=== PATIENT | female | born 1955 | race Caucasian/White ===

== ENCOUNTER 2024-11-04 14:47 | Outpatient (CLI) | payer MEDICARE, OTHER, SELFPAY ==
--- NOTE | ~2024-11-04 | CT_ITS ---
EXAMINATION: CT abdomen pelvis wo con DATE: 11/04/2024 15:08 INDICATION: Calculus of ureter. TECHNIQUE: Computed tomography (CT) of the abdomen and pelvis was performed without intravenous contr ast. Automated exposure control and iterative reconstruction technique were employed. The dose-length product was 372.35 mGy-cm. COMPARISON: CT abdomen pelvis 10/30/2009 FINDINGS: The visualized portions of the lung bases demonstrate mild atelectasis. There is mild scarr ing in paraspinal right lower lobe. No pleural effusion. The heart size is normal. No pericardial eff usion. There is a small sliding hiatal hernia. The liver, gallbladder, spleen, pancreas, and adrenal glands are normal. There is cortical thinning of the kidneys. There is a 5 mm stone right kidney. 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 There are no dilated loop s of bowel. The appendix is normal. There are no pathologically enlarged lymph nodes. There is no alyson e intraperitoneal fluid. There is a total left hip arthroplasty. There is mild lumbar spondylosis. IMPRESSION: 1. 5 mm nonobstructive right kidney stone. Reviewed, dictated and finalized at location A. N ASST
--- NOTE | ~2024-11-04 | XR_ITS ---
EXAMINATION: XR abdomen/kub 1V DATE: 11/04/2024 15:11 INDICATION: Calculus of ureter. TECHNIQUE: A supine view of the abdomen on 2 radiographs was obtained. COMPARISON: Abdomen radiographs 10/30/2009 FINDINGS: There are no dilated loops of bowel. There is a 5 mm stone in right kidney. There is a tota l left hip arthroplasty. IMPRESSION: 1. 5 mm stone in right kidney. Reviewed, dictated and finalized at location A. CE TENDER
--- OUTSIDE RECORDS SUMMARY | 2024-11-04 15:43 | XMS_ITS | Patient Health Record ---
Author Organization 1 OF Aruna fink [facility] Address [address] 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 Name Role Phone Earlene Washington Primary Care Provider Sridhar RosalesaStepanie Unavailable [phone] Allergies Allergen (clinical drug ingredient) Drug/Non Drug Allergy documented on EMR Reaction Allergy Type Onset Date Status amoxicillin / clavulanate Augmentin (uncoded) Unknown Allergy Active erythromycin Erythromycin (uncoded) Unknown Allergy Active hydrocodone Hydrocodone (uncoded) Unknown Allergy Active Substance with sulfonamide structure and antibacterial mechanism of action (substance) Sulfa (uncoded) Unknown Allergy Active Reason For Referral No Information Medications Medication SIG (Take, Route, Frequency, Duration) Notes Start Date End Date Status Diclofenac Sodium 1 % as directed Topica l Apply no more than 4 grams to affected area of foot Q6-8 hours PRN Pain for 30 days 11/19/2018 Not-T aking Vitamin D Active Lisinopril Active Rosuvastatin Calcium Active Omeprazole Active Social History Tobacco Use: Social History Observation Description Date Details (start date - stop date) Never Smoker NA - NA Tobacco Use/Smoking Question Answer Notes Are you a nonsmoker Plan Of Treatment No Information Insurance Providers Payer Name Payer Address Payer Phone Subscriber Number Group Number Insured Name Patient Relationship to Insured Coverage Start Date Coverage End Date [facility] [address] [place] [address] [id number] Luciana Anderson Self - patient is the insured Medical (General) History Medical History History ICD Code gerd/reflux, high cholesterol, high bloo d pressure Surgical History Surgery Date(Month/Year)
--- OUTSIDE RECORDS SUMMARY | 2024-11-04 15:43 | XMS_ITS | Clinical Summary ---
Author Organization [facility] at [facility] Center Address [address] [place] [address] Care Team Providers Care Assistant Corporation Counsel Name Role Phone Sadia Michaud MD Primary Care Provider [phone] Javi Kent MD Unavailable [phone] Sonya Huizar NP Unavailable [phone] Juan Luis Mora MD Unavailable [phone] Caitie Davies MD Unavailable [phone] Allergies Active Allergy Reactions Criticality Noted Date Comments Ciprofloxacin Headache Low 03/25/2019 Clindamycin Headache Low 03/03/2021 Erythromycin Rash Medium 03/25/2019 Hydrocodone Bitartrate Headache Low 03/25/2019 Sulfa (Sulfonamide Antibiotics) Headache Low 03/09 Vancomycin Headache Low 06/08/2021 Medications cholecalciferol (Vitamin D3) 2000 unit tabletIndications:Vitami n D deficiency Take 1 tablet (2,000 Units total) by mouth daily 90 tablet 1 05/15/20 20 Active omega-3 fatty acids (LOVAZA) 1 gram capsuleIndications:Mixed hyperlipidemia Take 2 capsules (2 g total) by mouth 2 (two) times a day 120 capsule 11 06/16/20 23 Active cetirizine (ZyrTEC) 10 mg tablet Take 1 tablet (10 mg total) by mouth daily 30 tablet 11 01/11/20 025 Active anastrozole (ARIMIDEX) 1 mg tablet TAKE 1 TABLET(1 MG) BY MOUTH DAILY 90 tablet 3 06/17/20 24 Active amLODIPine (NORVASC) 5 mg tabletIndications:Primar y hypertension Take 1 tablet (5 mg total) by mouth daily 90 tablet 3 06/17/20 24 025 Active lisinopriL (PRINIVIL,ZESTRIL) 20 mg tabletIndications:Primar y hypertension Take 1 tablet (20 mg total) by mouth daily 90 tablet 3 06/17/20 24 025 Active omeprazole (PriLOSEC) 40 mg capsuleIndications:[place] tt's esophagus without dysplasia Take 1 capsule (40 mg total) by mouth daily 90 capsule 3 06/17/20 24 025 Active rosuvastatin (CRESTOR) 5 mg tabletIndications:Pure hypercholesterolemia Take 1 tablet (5 mg total) by mouth daily 90 tablet 3 06/17/20 24 025 Active Active Problems Problem Noted Date Diagnosed Date FH: colon cancer 09/19/2024 Screening for colon cancer 07/25/2024 FHx: colon cancer 07/25/2024 Piriformis syndrome, right 06/17/2024 Assessment & Plan (06/17/2024 10:25 AM CDT): Recommend Accuobility ball and foam roller for home use Refer to PT Kidney stone 06/17/2024 Assessment & Plan (06/17/2024 10:26 AM CDT): Refer to urology Abnormal TSH 12/05/2023 Acute bronchitis due to other specified organism s 10/30/2023 Assessment & Plan (12/20/2023 12:06 PM CDT): New Order cefdinir, decadron, yamilex dee duoneb Order CT chest Refer to pulmonary Assessment & Plan (11/12/2023 7:18 PM PIPELINES LABORER): Persistent Order cefdinir, medrol, yamilex kaur AC Primary osteoarthritis of left hip 02/27/2023 Encounter for Medicare annual wellness exam 0 04/2022 Assessment & Plan (09/23/2022 3:15 PM PIPELINES LABORER): Patient here for annual Medicare wellness visit and for review of complete medical problem list. All the elements of the plan were completed as outlined by CMS. A copy of the prevention plan was given to the patient. I reviewed Medicare Wellness Questionnaire (other physicians involved in care, depression screen, advanced directives), cognitive/memory, and functional assessment. I reviewed and updated the complete problem list, medication list, family history, and immunization records with the patient. I provided preventive counseling and early detection interventions to the patient through health maintenance update and summary of today's office visit. Acute non-recurrent maxillary sinusitis 09/14/20 Assessment & Plan (11/12/2023 7:18 PM PIPELINES LABORER): Persistent Order cefdinir, medrol, astlein Onychomycosis of toenail 12/31/2021 Assessment & Plan (01/11/2022 7:02 AM CDT): New Order topical solution Uncontrolled hypertension 06/17/2021 Assessment & Plan (01/11/2022 7:01 AM CDT): Uncontrolled Since changing the prinzide to lisinopril because of elevated creatinine on last few labs, so that the HCTZ is removed, her BP has been going up again. Cont lisinopril Increase amlodipine to BID Goal: SBP<140, DBP<90 Assessment & Plan (11/12/2021 9:40 AM PIPELINES LABORER): Uncontrolled Since changing the prinzide to lisinopril because of elevated creatinine on last few labs, so that the HCTZ is removed, her BP has been going up again. Cont lisinopril Add amlodipine Goal: SBP<140, DBP<90 Assessment & Plan (06/28/2021 3:21 AM CDT): Uncontrolled Change lisinopril to zestoretic Goal: SBP<140, DBP<90 Oral thrush 06/17/2021 Assessment & Plan (06/28/2021 3:23 AM CDT): New Order nystatin Elevated liver enzymes 06/17/2021 Assessment & Plan (06/28/2021 3:23 AM CDT): New Recheck LFTs and hepatitis panel Abnormal EKG 06/17/2021 Assessment & Plan (06/28/2021 3:22 AM CDT): New Order EKG Cough 06/17/2021 Assessment & Plan (06/28/2021 3:24 AM CDT): New Secondary to URI Order cefdinir, albuterol Order CXR Malignant neoplasm of upper- outer quadrant of left breast in female, estrogen receptor positive 04/27/2021 Cancer Staging:Clinical stage from 04/16/2021: cT1c, cN0, cM0, ER+, OR+, HER2- - Signed by Caitie Davies MD on 05/05/2021 Pathologic stage from 05/27/2021:Stage IA(pT1c, pN0, cM0, G2, ER+, OR+, HER2-) - Signed by Caitie Davies MD on 07/05/2021 Left hip pain 12/15/2020 Assessment & Plan (03/10/2022 4:31 AM CDT): Worsening pain Order PT Assessment & Plan (12/21/2020 5:52 AM CDT): Worsening Refer to ortho Memory difficulties 12/15/2020 Assessment & Plan (12/21/2020 5:53 AM CDT): New Refer to memory center History of radiation therapy 10/09/2020 Overview (09/16/2021): Left breast Elevated alkaline phosphatase level 10/10/2019 Assessment & Plan (06/17/2024 10:25 AM CDT): Chronic and stable Possibly due to chemotherapy Refer to GI Assessment & Plan (05/15/2020 6:48 PM CDT): Resolved - normal on recent labs Assessment & Plan (10/10/2019 3:31 PM PIPELINES LABORER): Order liver ultrasound Monitor alkaline phosphatase 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 Continue current regimen with PPI Assessment & Plan (10/10/2019 3:30 PM PIPELINES LABORER): Stable Cont prilosec Assessment & Plan (03/25/2019 10:27 AM CDT): Cont prilosec Hyperlipidemia 06/28/2016 Assessment & Plan (06/17/2024 10:24 AM CDT): Rosuvastatin 5 mg refilled Continue [id number] fish oil Follow-up in 6 months Assessment & Plan (12/20/2023 12:07 PM CDT): Chronic Stable Cont crestor, lovaza Goal: TC<200, LDL<100, TG<150 Assessment & Plan (06/16/2023 4:46 AM CDT): Chronic TG increased Add fish oil Cont crestor Goal: TC<200, LDL<100, TG<150 Assessment & Plan (03/10/2022 4:28 AM CDT): Stable Cont crestor Goal:TC<200, LDL<100 Assessment & Plan (10/24/2021 5:46 PM PIPELINES LABORER): Stable Cont crestor Goal:TC<200, LDL<100 Assessment & Plan (07/15/2021 5:52 AM CDT): Stable Cont crestor Goal:TC<200, LDL<100 Assessment & Plan (06/28/2021 3:22 AM CDT): Stable Cont crestor Goal:TC<200, LDL<100 Assessment & Plan (12/21/2020 5:53 AM CDT): Stable Cont crestor Assessment & Plan (05/15/2020 6:48 PM CDT): Stable, no changes. Continue current regimen with Crestor Assessment & Plan (10/10/2019 3:30 PM PIPELINES LABORER): Lipid abnormalities are improving. cont crestor Lipids will be reassessed in 6 months. Assessment & Plan (03/25/2019 10:28 AM CDT): Lipid abnormalities are improving. cont crestor Lipids will be reassessed in 6 months. Hypertension 06/28/2016 Assessment & Plan (06/17/2024 10:24 AM CDT): Currently chronic and stable Continue current medication regimen as prescribed. Goal blood pressure is less than 140/90. Recommend DASH diet to reduce sodium/salt in diet. Recommend 150 min of moderate aerobic exercise weekly as tolerated. Visit www.heart.org for more information on diet and lifestyle to improve blood pressure for heart health. F/u in 6 months Assessment & Plan (12/20/2023 12:06 PM CDT): Chronic Stable Cont lisinopril Goal: SBP<140, DBP<90 Assessment & Plan (11/12/2023 7:21 PM PIPELINES LABORER): Chronic Stable Cont lisinopril Goal: SBP<140, DBP<90 Assessment & Plan (06/16/2023 4:47 AM CDT): Chronic Stable Cont lisinopril, norvasc Goal: SBP<140, DBP<90 Assessment & Plan (03/10/2022 4:33 AM CDT): stable Cont lisinopril, norvasc Goal: SBP<140, DBP<90 Assessment & Plan (10/24/2021 5:46 PM PIPELINES LABORER): Better Cont lisinopril/hctz Goal: SBP<140, DBP<90 Assessment & Plan (07/15/2021 5:52 AM CDT): Better Cont lisinopril/hctz Goal: SBP<140, DBP<90 Assessment & Plan (12/21/2020 5:52 AM CDT): Stable Cont lisionpril Assessment & Plan (05/15/2020 6:49 PM CDT): Elevated recently. Increased stress may be contributing. Advised to keep a daily log of BP and if remains elevated, will increase lisinopril to 30mg Assessment & Plan (10/10/2019 3:30 PM PIPELINES LABORER): Hypertension is stable. Continue current medications. Blood pressure will be reassessed at the next regular appointment Cont lisinopril. Assessment & Plan (03/25/2019 10:28 AM CDT): Hypertension is stable. Continue current medications. Blood pressure will be reassessed at the next regular appointment Cont lisinopril. Resolved Problems Problem Noted Date Diagnosed Date Resolved Date Cough 03/25/2019 05/15/2020 Assessment & Plan (03/25/2019 10:32 AM CDT): Treat for sinus infection Vitamin D deficiency 06/28/2016 024 Assessment & Plan (06/16/2023 4:46 AM CDT): Chronic Stable Cont vitamin d supplement Assessment & Plan (03/10/2022 4:29 AM CDT): Stable Cont vit d supplement Assessment & Plan (10/24/2021 5:47 PM PIPELINES LABORER): Stable Cont vit d supplement Assessment & Plan (06/28/2021 3:22 AM CDT): Stable Cont vit d supplement Assessment & Plan (05/15/2020 6:49 PM CDT): Stable, no changes. Continue current regimen with supplement Assessment & Plan (10/10/2019 3:30 PM PIPELINES LABORER): Stable Cont OTC vitamin d supplement Assessment & Plan (03/25/2019 10:28 AM CDT): Cont OTC vitamin d supplement Encounters Date Type Department Care Team Description 10/23/2024 3:00 PM PIPELINES LABORER Office Visit [facility] Medical Office Building 2 Radiation Oncology [address] [place] [id number] [address], [place] Malignant neoplasm of upper-outer quadrant of left breast in female, estrogen receptor positive (HCC) (Primary Dx); History of radiation therapy 09/19/2024 Orders Only [facility]ology at [address] [phone] Claude Quiroz MD Screening for colon cancer (Primary Dx); FH: colon cancer; 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; Elevated alkaline phosphatase level 09/18/2024 Telephone [facility] Gastroenterology at [address] [phone] Eljiah Ngo MD from Last 3 Months Immunizations Name Administration Dates Next Due Influenza, Trivalent, Preser vative Free, Intramuscular 07/27/2023,07/26/2022,07/15/2021,07/16,07/24/2019 Influenza, Unspecified 07/26/2022,2020,07/19/2021,07/15,07/28/2020,07/28/2020,07/16/2020 ,07/24/2019 Moderna SARS-CoV-2 Monovalen t Vaccination (12+ YRS) 10/26/2021,12/24/2020,11/26/2020 Surgical History Surgery Date Site/Laterality Comments DILATION AND CURETTAGE OF UTERUS 10/09/1979 - 10/08/1980 TONSILLECTOMY AND ADENOIDECTOMY 10/09/1960 - 10/08/1961 KIDNEY STONE SURGERY 10/09/2008 - 10/08/2009 FL FLUORO GUIDED INJECTION H IP LEFT 03/03/2021 Left LITHOTRIPSY 10/09/2008 - 10/08/2009 COLONOSCOPY MOHS SURGERY face BREAST LUMPECTOMY 05/27/2021 Left Invasive ductal carcinoma BREAST BIOPSY 04/16/2021 Left Invasive Ductal Carcinoma & DCIS TOTAL HIP ARTHROPLASTY 05/12/2023 Left UPPER GASTROINTESTINAL ENDOSCOPY Medical History Medical History Date Comments Hypertension Hyperlipidemia Quezada's esophagus Vitamin D deficiency Rosacea Arthritis GERD (gastroesophageal reflux disease) Cough 03/25/2019 Nephrolithiasis hx of kidney sto yaneli Quezada esophagus Motion sickness PONV (postoperative nausea and vomiting) Pneumonia Allergic rhinitis Urinary tract infection Chronic pain disorder left hip a rthritis Obesity Miscarriage 1979 Breast cancer (HCC) 04/2021 Left Breast (invasive ductal carcinoma) History of radiation therapy 2020 Lef t breast Family History Medical History Relation Name Comments No Known Problems Daughter 1 No Known Problems Daughter 2 Dementia Father Heart disease Father Colon cancer Maternal Grandfather COPD Mother Dementia Mother Prostate cancer Mother's Brother Hypertension Sister 1 Hypertension Sister 2 No Known Problems Son 1 No Known Problems Son 2 Breast cancer Neg Hx Relation Name Status Comments Daughter 1 Alive Daughter 2 Alive Father Maternal Grandfather Mother Alive Mother's Brother Sister 1 Alive Sister 2 Alive Son 1 Alive Son 2 Alive Social History Tobacco Use Types Packs/Day Years Used Date Smoking Tobacco: Never Smokeless Tobacco: Never Alcohol Use Standard Drinks/Week Comments Never 0 (1 standard drink = 0.6 oz pur e alcohol) AUDIT-C Answer Date Recorded Q1: How often do you have a drink containing alcohol? Never 10/15/2024 Q2: How many drinks containi ng alcohol do you have on a typical day when you are drinking? Patient does not drink Q3: How often do you have si x or more drinks on one occasion? Never 10/15/2024 PHQ-2 Answer Date Recorded PHQ-2 Total Score (If total score is 3 or more points, staff should administer the PHQ-9) 0 10/30/2023 Comments No Sex and Gender Information Value Date Recorded Sex Assigned at Not on file Legal Sex Female 12:16 AM PIPELINES LABORER Gender Identity Female 12/12/2020 10:44 AM PIPELINES LABORER Sexual Orientation Not on file Obstetrics History Para Term AB IAB SAB Ectopic Multiple Livin g Live Births 5 4 4 Date Outcome GA Total Labor Labor/2nd/3rd Weight Sex Type Anes PTL Nette A1 A5 Name Clin Term Term Term Term Last Filed Vital Signs Vital Sign Reading Time Taken Comments Blood Pressure 137/87 10/23/2024 3:06 PM PIPELINES LABORER Pulse 77 10/23/2024 3:06 PM PIPELINES LABORER Temperature 36.8 ??C (98.3 ??F) 07/09/2024 1:13 PM C DT Respiratory Rate 16 07/09/2024 1:13 PM CDT Oxygen Saturation 100% 10/23/2024 3:06 PM PIPELINES LABORER Inhaled Oxygen Concentration - - Weight 90.3 kg (199 lb) 10/23/2024 3:06 PM PIPELINES LABORER Height 165.1 cm (5' 5 ) 06/17/2024 9:29 AM CDT Body Mass Index 33.12 06/17/2024 9:29 AM CDT Plan of Treatment Health Maintenance Due Date Last Done Comments Colon Cancer Screening-Colonoscopy 1957 Pneumococcal vaccine 65+ (1 of 2 - PCV) 1963 DTaP/Tdap/Td Vaccine (1 - Tdap) 1968 Hepatitis B Screening 1975 Zoster Vaccine (1 of 2) 1976 Well Visit 65+ 09/14/2023 09/14/2022 Covid-19 Vaccine (4 2023-2 5 season) 2024 10/26/2021, 12/24/2020, 11/26/2020 Influenza Vaccine (#1) 2024 , 07/26/2022, 07/26/2022, Additional history exists Depression Screening 10/30/2024 10/30/2023, 09/14/2022, 09/14/2022, Additional history exists Fall Risk Assessment 10/30/2024 10/30/2023, 09/14/2022, 05/20/2021 Breast Cancer Screening-Mammogram 04/12/2025 04/12/2024, 04/04/2023, 03/21/2022, Additional history exists Osteoporosis Screening-Bone Density Scan 07/21/2025 07/21/2023, 08/06/2021, 08/06/2021, Additional history exists Hepatitis C Screening Completed 07/05/2021 Medical Devices Explanted Type Area Drivers' Cash Clerk Device Identifier Shelf Expiration Date Model / Serial / Lot [employer] [id number] Addison 20ga 7.5cm 2 Part Stabilizer Repositionable Depth Albino - [id number] Explanted:Qty: 1 on 05/27/2021 at [facility] [employer] [id number] / / [employer] [id number] Addison 20ga 5cm Reposition J Curve Wire Centimeter Albino Stabilizer - [id number] Explanted:Qty: 1 on 05/27/2021 at [facility] [email or web address] 10/16/2025 [id number] / / Procedures Procedure Name Priority Date/Time Associated Diagnosis Comments DIAGNOSTIC MAMMOGRAM BILATERAL W SHASHANK Schedule Routine, Read Routine (OP Routine) 04/12/2024 2:03 PM CDT Screening mammogram for breast cancer Mammographic microcalcification found on diagnostic imaging of breast DEXA AXIAL SKELETON BONE DENSITY 1 OR MORE SITES Schedule Routine, Read Routine (OP Routine) 07/21/2023 10:11 AM CDT Post-menopausal osteoporosis HEPATITIS PANEL, ACUTE Routine 07/05/2021 12:34 PM CDT from Last 3 Months or Most Recently Relevant to Health Maintenance Results * Diagnostic Mammogram Bilateral W Shashank (04/12/2024 2:03 PM CDT) Anatomical Region Laterality Modality Breast Bilateral Mammography 04/12/2024 2:13 PM CDT Narrative 04/12/2024 2:18 PM CDT EXAM DESCRIPTION: DIAGNOSTIC MAMMOGRAM BILATERAL W SHASHANK REASON FOR STUDY: 69-year-old female with history of left breast invasive ductal carcinoma (diagnosed in April 2021) status post breast conserving therapy presents for post-treatment annual diagnostic mammogram. TECHNIQUE: ??CC and MLO views of the bilateral breasts were obtained with digital technique using breast tomosynthesis with C view. ?? COMPARISON: 04/04/2023, 03/21/2022, 05/27/2021, 04/16/2021, 04/09/2021, 03/17/2021, 07/10/2019 FINDINGS: DENSITY: The breasts are almost entirely fatty. MAMMOGRAM FINDINGS: Expected postoperative/post-treatment changes of breast conserving therapy in the upper outer left breast, posterior depth, have not suspiciously changed. ??There is an unchanged benign intramammary lymph node in the upper outer right breast, posterior depth. ??There are benign calcifications in the left breast, many of which are in keeping with either fat necrosis or skin calcifications. ??There is no new suspicious finding in either breast on mammogram. IMPRESSION: 1. ?? Stable postoperative/post-treatment changes of breast conserving therapy in the left breast. 2. ?? No new suspicious mammographic finding is identified in either breast. Continued clinical follow-up and monthly self-breast examination are recommended. ??Per [facility] guidelines, the patient may return to screening mammography to be performed in 1 year. BIRADS: 2 ??Benign findings. THIS IS AN ELECTRONICALLY VERIFIED FINAL REPORT 04/12/2024 2:18 PM - Electronically signed by ??Melchor Villalpando M.D., MD: D: ??04/12/2024 2:18 PM T: ??04/12/2024 2:18 PM Report ID: [id number] Reading Location: ??MAMME Sonya Coley Bhupendra RESPIRATORY DIRECTOR IMG MAMMO PROCEDURES Final Result * Dexa Axial Skeleton Bone Density 1 or 2 Site (07/21/2023 10:11 AM CDT) Anatomical Region Laterality Modality Body N/A Mammography 07/22/2023 2:41 PM CDT Narrative 07/22/2023 2:42 PM CDT EXAM DESCRIPTION: DEXA AXIAL SKELETON BONE DENSITY 1 OR MORE SITES REASON FOR STUDY: 68 y/o ?? year old ??F ??with given history of: ??Postmenopausal status. ??History of prior left hip replacement in May 2023. ??Patient takes vitamin-D. ? Drivers' Cash Clerk/Model: SmartMove A (S/N [id number]) CLINICAL INFORMATION: Current height: ??65 ??inches ? Maximum height: ??65 ??inches ? Weight: ??209.6 ??pounds Risk factors: ??Prior fracture COMPARISON: 08/06/2021 FINDINGS: AP LUMBAR SPINE L1-L4: Total BMD is 0.896 g/cm2 T-score is -1.4 This is a 3.8% decrease in comparison to prior exam which is statistically significant. RIGHT HIP: Total BMD is 0.867 g/cm2 T-score is -0.6 No prior for comparison Femoral neck BMD is 0.651 g/cm2 T-score is -1.8 ?? FRAX: 10 year risk for a major osteoporotic fracture is 15 %, 10 year risk for a hip fracture is 1.9 % IMPRESSION: Low bone mass REFERENCE: Bone mineral density: ? Normal (T-score above or = -1.0) ? Low bone mass ??(T-score between -1.0 and -2.5) replaces the previously used term osteopenia ? Osteoporosis (T-score = or below -2.5) Medical evaluation for secondary causes of low bone mineral density may be appropriate. FRAX is a World Health Organization validated fracture risk assessment tool that calculates a person's 10 year probability of a major osteoporosis related fracture and hip fracture. ??According to the National Osteoporosis Foundation guidelines, postmenopausal women and men age 50 or older with low bone mass and a 10 year probability of a major osteoporosis related fracture = or greater than 20% or a 10 year probability of a hip fracture = or greater than 3% should be considered for treatment. For further information, including treatment recommendations, please refer to the 2019 ISCD Official Positions (http://www.iscd.org) and the NOF's Clinician's Guide to Prevention and Treatment of Osteoporosis (http://www.nof.org/professionals/clinical-guidelines) THIS IS AN ELECTRONICALLY VERIFIED FINAL REPORT 07/22/2023 2:42 PM - Electronically signed by ??Crystal Raymond M.D. TW: D: ??07/22/2023 2:42 PM T: ??07/22/2023 2:42 PM Report ID: [id number] Reading Location: ??[id number] Procedure Note Crystal Raymond MD - 07/22/2023 EXAM DESCRIPTION: DEXA AXIAL SKELETON BONE DENSITY 1 OR MORE SITES REASON FOR STUDY: 68 y/o year old F with given history of:Postmenopausal status. History of prior left hip replacement in May 2023. Patienttakes vitamin-D. Drivers' Cash Clerk/Model: [employer] A (S/N [id number]) CLINICAL INFORMATION: Current height: 65 inches Maximum height: 65 inches Weight: 209.6 pounds Risk factors: Prior fracture COMPARISON: 08/06/2021 FINDINGS: AP LUMBAR SPINE L1-L4: Total BMD is 0.896 g/cm2 T-score is -1.4 This is a 3.8% decrease in comparison to prior exam which is statistically significant. RIGHT HIP: Total BMD is 0.867 g/cm2 T-score is -0.6 No prior for comparison Femoral neck BMD is 0.651 g/cm2 T-score is -1.8 FRAX: 10 year risk for a major osteoporotic fracture is 15 %, 10 year risk for ahip fracture is 1.9 % IMPRESSION: Low bone mass REFERENCE: Bone mineral density: Normal (T-score above or = -1.0) Low bone mass (T-score between -1.0 and -2.5) replaces thepreviously used term osteopenia Osteoporosis (T-score = or below -2.5) Medical evaluation for secondary causes of low bone mineral density may be appropriate. FRAX is a World Health Organization validated fracture risk assessmenttool that calculates a person's 10 year probability of a major osteoporosisrelated fracture and hip fracture. According to the National OsteoporosisFoundation guidelines, postmenopausal women and men age 50 or older with low bonemass and a 10 year probability of a major osteoporosis related fracture = or greater than 20% or a 10 year probability of a hip fracture = or greaterthan 3% should be considered for treatment. For further information, including treatment recommendations, please referto the 2019 ISCD Official Positions (http://www.iscd.org) and the NOF's Clinician's Guide to Prevention and Treatment of Osteoporosis (http://www.nof.org/professionals/clinical-guidelines) THIS IS AN ELECTRONICALLY VERIFIED FINAL REPORT 07/22/2023 2:42 PM - Electronically signed by Crystal Raymond M.D. TW: TW Report ID: [id number] Reading Location: [place] [address] Sonya Huizar NP IM DXA PROCEDURES F inal Result * Hepatitis panel, acute (07/05/2021 12:34 PM CDT) Hep A IgM NON-REACTI VE NON-REACT EVA [facility] Comment: For additional information, please refer to http://education.GnamGnam/faq/TVN192 (This link is being provided for informational/ educational purposes only.) HepBsAg NON-REACTI VE NON-REACT EVA [facility] Hep B core IgM NON-REACTI VE NON-REACT EVA [facility] Hep C Ab NON-REACTI VE NON-REACT EVA [facility] SIGNAL TO CUT-OFF 0.01 <1.00 [facility] Comment: HCV antibody was non-reactive. There is no laboratory evidence of HCV infection. In most cases, no further action is required. However, if recent HCV exposure is suspected, a test for HCV RNA (test code 30280) is suggested. For additional information please refer to http://education.Flashstarts.GroundWork/faq/BTJ22s6 (This link is being provided for informational/ educational purposes only.) 07/05/2021 12:3 4 PM CDT 07/05/2021 12:35 PM CDT Sadia Michaud MD LAB MICROBIOLOGY - GENERA L ORDERABLES Final Result [facility] [address] [facility] [place] [address] from Last 3 Months or Most Recently Relevant to Health Maintenance Insurance [facility] MEDICARE MEDICARE [facility] Care Teams Assistant Corporation Counsel Relationship Specialty Start Date End Date Sadai Michaud MD PCP - General 11/26/18 Javi Kent MD [address] [place] [address] Surgeon Surgery 05/05/21 Sonya Huizar NP [address] [place] [address] Nurse Practitioner Medical Oncology 01/04/23 Juan Luis Mora MD [address] [place] [address] Surgeon General Surgery 10/05/23 Caitie Davies MD [address] [place] [address] Radiation Oncologist Radiation Oncology 06/04/24
--- OUTSIDE RECORDS SUMMARY | 2024-11-04 15:43 | XMS_ITS | Referral Summary ---
Author Organization [facility] Address [address] [place] [address] Care Team Providers Care Purchase Request Editor Name Role Phone Sadia Michaud MD Primary Care Provider [phone] Javi Kent MD Unavailable [phone] Sonya Huizar NP Unavailable + [phone] Juan Luis Mora MD Unavailable [phone] Caitie Davies MD Unavailable [phone] Encounters Date Type Department Care Team Description 10/23/2024 3:00 PM RAILWAY STATION MANAGER Office Visit [facility] 2 Radiation Oncology [address] [place] [id number] Marietta Dunne, ROSA M Malignant neoplasm of upper-outer quadrant of left breast in female, estrogen receptor positive (HCC) (Primary Dx); History of radiation therapy 09/19/2024 Orders Only [facility] Gastroenterology at [address] [place] [phone] Claude Quiroz MD Screening for colon cancer (Primary Dx); FH: colon cancer; 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; Elevated alkaline phosphatase level 09/18/2024 Telephone [facility] Gastroenterology at [address] [place] [address] Elijah Ngo MD from Last 3 Months Allergies Active Allergy Reactions Criticality Noted Date [...] by mouth daily 30 tablet 11 01/11/20 24 025 Active anastrozole (ARIMIDEX) 1 mg tablet [...] 24 025 Active omeprazole (PriLOSEC) 40 mg capsuleIndications:Lyles tt's esophagus without dysplasia Take 1 capsule [...] 12:06 PM CDT): New Order cefdinir, decadron, trelegy, guaituss, duoneb Order CT chest Refer to pulmonary Assessment & Plan (11/12/2023 7:18 PM RAILWAY STATION MANAGER): Persistent Order cefdinir, medrol, breztri, guaituss AC Primary osteoarthritis of left hip 02/27/2023 Encounter for Medicare annual wellness exam 04/2022 Assessment & Plan (09/23/2022 3:15 PM RAILWAY STATION MANAGER): Patient here for annual Medicare wellness visit [...] 09/14/20 Assessment & Plan (11/12/2023 7:18 PM RAILWAY STATION MANAGER): Persistent Order cefdinir, medrol, astlein Onychomycosis of [...] DBP<90 Assessment & Plan (11/12/2021 9:40 AM RAILWAY STATION MANAGER): Uncontrolled Since changing the prinzide to lisinopril [...] stage from 04/16/2021: cT1c, cN0, cM0, ER+, IA+, HER2- - Signed by Caitie Davies MD on 05/05/2021 Pathologic stage from 05/27/2021:Stage IA(pT1c, pN0, cM0, G2, ER+, IA+, HER2-) - Signed by Caitie Davies MD on 07/05/2021 Left hip pain 12/15/2020 Assessment & Plan (03/10/2022 4:31 AM CDT): Worsening pain Order PT Assessment & Plan (12/21/2020 5:52 AM CDT): Worsening Refer to ortho Memory difficulties 12/15/2020 Assessment & Plan (12/21/2020 5:53 AM CDT): New Refer to [facility] History of radiation therapy 10/09/2020 Overview (09/16/2021): Left breast Elevated alkaline phosphatase level 10/10/2019 Assessment & Plan (06/17/2024 10:25 AM CDT): Chronic and stable Possibly due to chemotherapy Refer to GI Assessment & Plan (05/15/2020 6:48 PM CDT): Resolved - normal on recent labs Assessment & Plan (10/10/2019 3:31 PM RAILWAY STATION MANAGER): Order liver ultrasound Monitor alkaline phosphatase 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 Assessment & Plan (06/17/2024 10:20 AM CDT): Refer to GI Omeprazole refilled Follow-up in 6 months Assessment & Plan (11/12/2023 7:20 PM RAILWAY STATION MANAGER): Chronic Stable Cont omeprazole Assessment & Plan [...] PPI Assessment & Plan (10/10/2019 3:30 PM RAILWAY STATION MANAGER): Stable Cont prilosec Assessment & Plan (03/25/2019 10:27 AM CDT): Cont prilosec Hyperlipidemia 06/28/2016 Assessment & Plan (06/17/2024 10:24 AM CDT): Rosuvastatin 5 mg refilled Continue kmxe-dlf-tlublup fish oil Follow-up in 6 months Assessment & Plan (12/20/2023 12:07 PM CDT): Chronic Stable Cont crestor, lovaza Goal: TC<200, LDL<100, TG<150 Assessment & Plan (06/16/2023 4:46 AM CDT): Chronic TG increased Add fish oil Cont crestor Goal: TC<200, LDL<100, TG<150 Assessment & Plan (03/10/2022 4:28 AM CDT): Stable Cont crestor Goal:TC<200, LDL<100 Assessment & Plan (10/24/2021 5:46 PM RAILWAY STATION MANAGER): Stable Cont crestor Goal:TC<200, LDL<100 Assessment & Plan (07/15/2021 5:52 AM CDT): Stable Cont crestor Goal:TC<200, LDL<100 Assessment & Plan (06/28/2021 3:22 AM CDT): Stable Cont crestor Goal:TC<200, LDL<100 Assessment & Plan (12/21/2020 5:53 AM CDT): Stable Cont crestor Assessment & Plan (05/15/2020 6:48 PM CDT): Stable, no changes. Continue current regimen with Crestor Assessment & Plan (10/10/2019 3:30 PM RAILWAY STATION MANAGER): Lipid abnormalities are improving. cont crestor Lipids [...] DBP<90 Assessment & Plan (11/12/2023 7:21 PM RAILWAY STATION MANAGER): Chronic Stable Cont lisinopril Goal: SBP<140, DBP<90 Assessment & Plan (06/16/2023 4:47 AM CDT): Chronic Stable Cont lisinopril, norvasc Goal: SBP<140, DBP<90 Assessment & Plan (03/10/2022 4:33 AM CDT): stable Cont lisinopril, norvasc Goal: SBP<140, DBP<90 Assessment & Plan (10/24/2021 5:46 PM RAILWAY STATION MANAGER): Better Cont lisinopril/hctz Goal: SBP<140, DBP<90 Assessment [...] 30mg Assessment & Plan (10/10/2019 3:30 PM RAILWAY STATION MANAGER): Hypertension is stable. Continue current medications. Blood [...] supplement Assessment & Plan (10/24/2021 5:47 PM RAILWAY STATION MANAGER): Stable Cont vit d supplement Assessment & Plan (06/28/2021 3:22 AM CDT): Stable Cont vit d supplement Assessment & Plan (05/15/2020 6:49 PM CDT): Stable, no changes. Continue current regimen with supplement Assessment & Plan (10/10/2019 3:30 PM RAILWAY STATION MANAGER): Stable Cont OTC vitamin d supplement Assessment & Plan (03/25/2019 10:28 AM CDT): Cont OTC vitamin d supplement Immunizations Name Administration Dates Next Due Influenza, Trivalent, Preser vative Free, Intramuscular 07/27/2023,07/26/2022,07/15/2021,07/16,07/24/2019 Influenza, Unspecified 07/26/2022,2020,07/19/2021,07/15,07/28/2020,07/28/2020,07/16/2020 ,07/24/2019 Moderna SARS-CoV-2 Monovalen t Vaccination (12+ YRS) 10/26/2021,12/24/2020,11/26/2020 Social History Tobacco Use Types Packs/Day Years [...] on file Legal Sex Female 12:16 AM RAILWAY STATION MANAGER Gender Identity Female 12/12/2020 10:44 AM RAILWAY STATION MANAGER Sexual Orientation Not on file Last Filed Vital Signs Vital Sign Reading Time Taken Comments Blood Pressure 137/87 10/23/2024 3:06 PM RAILWAY STATION MANAGER Pulse 77 10/23/2024 3:06 PM RAILWAY STATION MANAGER Temperature 36.8 ??C (98.3 ??F) 07/09/2024 1:13 PM CD T Respiratory Rate 16 07/09/2024 1:13 PM CDT Oxygen Saturation 100% 10/23/2024 3:06 PM RAILWAY STATION MANAGER Inhaled Oxygen Concentration - - Weight 90.3 kg (199 lb) 10/23/2024 3:06 PM RAILWAY STATION MANAGER Height 165.1 cm (5' 5 ) 06/17/2024 9:29 AM CDT Body Mass Index 33.12 06/17/2024 9:29 AM CDT Plan of Treatment Not on file Medical Devices Explanted Type Area Collision Worker Device Identifier Shelf Expiration Date Model / Serial / Lot [employer] [id number] [place] 20ga 7.5cm 2 Part Stabilizer Repositionable Depth Albino - [id number] Explanted:Qty: 1 on 05/27/2021 at [facility] [employer] [id number] / / [employer] [id number] [place] 20ga 5cm Reposition J Curve Wire Centimeter Albino Stabilizer - [id number] Explanted:Qty: 1 on 05/27/2021 at [facility] [employer] 10/16/2025 [id number] / / Procedures Procedure Name Priority Date/Time [...] and monthly self-breast examination are recommended. ??Per [facility] guidelines, the patient may return to screening mammography to be performed in 1 year. BIRADS: 2 ??Benign findings. THIS IS AN ELECTRONICALLY VERIFIED FINAL REPORT 04/12/2024 2:18 PM - Electronically signed by ??Melchor Villalpando M.D., MD: D: ??04/12/2024 2:18 PM T: ??04/12/2024 2:18 PM Report ID: [id number] Reading Location: ??MAMMMHE Sonya Huizar NP IMG MAMMO PROCEDURES Final Result * Dexa [...] in May 2023. ??Patient takes vitamin-D. ? Collision Worker/Model: [employer] A (S/N [id number]) CLINICAL INFORMATION: Current height: ??65 ??inches ? [...] Electronically signed by ??Crystal Raymond M.D. TW: DAVON D: ??07/22/2023 2:42 PM T: ??07/22/2023 2:42 PM Report ID: [id number] Reading Location: ??[id number] Procedure Note Crystal Raymond MD - 07/22/2023 EXAM DESCRIPTION: DEXA AXIAL SKELETON BONE DENSITY 1 OR MORE SITES REASON FOR STUDY: 68 y/o year old F with given history of:Postmenopausal status. History of prior left hip replacement in May 2023. Patienttakes vitamin-D. Collision Worker/Model: [employer] A (S/N [id number]) CLINICAL INFORMATION: Current height: 65 inches Maximum [...] Crystal Raymond M.D. TW: TW Report ID: [id number] Reading Location: [place] [address] [place] Sonya Huizar NET ARCHITECT IMG DXA PROCEDURES F inal Result * Hepatitis panel, acute (07/05/2021 12:34 PM CDT) Hep A IgM NON-REACTI VE NON-REACT EVA [facility] Comment: For additional information, please refer to http://[employer]/faq/QVE643 (This link is being provided for informational/ [...] a test for HCV RNA (test code 94159) is suggested. For additional information please refer to http://[employer]/faq/VAM68z4 (This link is being provided for informational/ educational purposes only.) 07/05/2021 12:3 4 PM CDT 07/05/2021 12:35 PM CDT us Sadia Michaud MD LAB MICROBIOLOGY - GENERA L ORDERABLES Final Result [facility] [address] [place] [address] from Last 3 Months or Most Recently Relevant to Health Maintenance Insurance [facility] MEDICARE MEDICARE [facility] SARAH Fajardo [id number] Care Teams Purchase Request Editor Relationship Specialty Start Date End Date Sadia Michaud MD PCP - General 11/26/18 Javi Kent MD [address] [place] [address] [id number] Surgeon Surgery 05/05/21 Sonya Huizar NP [address] [place] [address] [id number] Nurse Practitioner Medical Oncology 01/04/23 Juan Luis Mora MD [address] [place] [address] [phone] Surgeon General Surgery 10/05/23 Caitie Davies MD [address] [place] [id number] Radiation Oncologist Radiation Oncology 06/04/24
--- OUTSIDE RECORDS SUMMARY | 2024-11-04 15:43 | XMS_ITS ---
Author Organization [facility] Address [address] [place] [address] Care Team Providers Care Highwall Drill Operator Name Role Phone Sadia Michaud MD Primary Care Provider + [phone] Javi Kent MD Unavailable [phone] Sonya Huizar NP Unavailable + [phone] Juan Luis Mora MD Unavailable [phone] Caitie Davies MD Unavailable [phone] Active Problems Problem Noted Date Diagnosed Date [...] pulmonary Assessment & Plan (11/12/2023 7:18 PM CRIPPLE CUTTER): Persistent Order cefdinir, medrolnatasha guaituss AC Primary osteoarthritis of left hip 02/27/2023 Encounter for Medicare annual wellness exam 04/2022 Assessment & Plan (09/23/2022 3:15 PM CRIPPLE CUTTER): Patient here for annual Medicare wellness visit [...] 09/14/20 Assessment & Plan (11/12/2023 7:18 PM CRIPPLE CUTTER): Persistent Order cefdinir, medrolnoelle Onychomycosis of toenail 12/31/2021 Assessment & Plan [...] DBP<90 Assessment & Plan (11/12/2021 9:40 AM CRIPPLE CUTTER): Uncontrolled Since changing the prinzide to lisinopril [...] stage from 04/16/2021: cT1c, cN0, cM0, ER+, CO+, HER2- - Signed by Caitie Davies MD on 05/05/2021 Pathologic stage from 05/27/2021:Stage IA(pT1c, pN0, cM0, G2, ER+, CO+, HER2-) - Signed by Caitie Davies MD on 07/05/2021 Left hip pain 12/15/2020 Assessment & Plan (03/10/2022 4:31 AM CDT): Worsening pain Order PT Assessment & Plan (12/21/2020 5:52 AM CDT): Worsening Refer to ortho Memory difficulties 12/15/2020 Assessment & Plan (12/21/2020 5:53 AM CDT): New Refer to [facility] History of radiation therapy 10/09/2020 Overview (09/16/2021): Left breast Elevated alkaline phosphatase level 10/10/2019 Assessment & Plan (06/17/2024 10:25 AM CDT): Chronic and stable Possibly due to chemotherapy Refer to GI Assessment & Plan (05/15/2020 6:48 PM CDT): Resolved - normal on recent labs Assessment & Plan (10/10/2019 3:31 PM CRIPPLE CUTTER): Order liver ultrasound Monitor alkaline phosphatase 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 Assessment & Plan (06/17/2024 10:20 AM CDT): Refer to GI Omeprazole refilled Follow-up in 6 months Assessment & Plan (11/12/2023 7:20 PM CRIPPLE CUTTER): Chronic Stable Cont omeprazole Assessment & Plan [...] PPI Assessment & Plan (10/10/2019 3:30 PM CRIPPLE CUTTER): Stable Cont prilosec Assessment & Plan (03/25/2019 10:27 AM CDT): Cont prilosec Hyperlipidemia 06/28/2016 Assessment & Plan (06/17/2024 10:24 AM CDT): Rosuvastatin 5 mg refilled Continue dlcn-lkv-stmuuup fish oil Follow-up in 6 months Assessment & Plan (12/20/2023 12:07 PM CDT): Chronic Stable Cont crestor, lovaza Goal: TC<200, LDL<100, TG<150 Assessment & Plan (06/16/2023 4:46 AM CDT): Chronic TG increased Add fish oil Cont crestor Goal: TC<200, LDL<100, TG<150 Assessment & Plan (03/10/2022 4:28 AM CDT): Stable Cont crestor Goal:TC<200, LDL<100 Assessment & Plan (10/24/2021 5:46 PM CRIPPLE CUTTER): Stable Cont crestor Goal:TC<200, LDL<100 Assessment & Plan (07/15/2021 5:52 AM CDT): Stable Cont crestor Goal:TC<200, LDL<100 Assessment & Plan (06/28/2021 3:22 AM CDT): Stable Cont crestor Goal:TC<200, LDL<100 Assessment & Plan (12/21/2020 5:53 AM CDT): Stable Cont crestor Assessment & Plan (05/15/2020 6:48 PM CDT): Stable, no changes. Continue current regimen with Crestor Assessment & Plan (10/10/2019 3:30 PM CRIPPLE CUTTER): Lipid abnormalities are improving. cont crestor Lipids [...] DBP<90 Assessment & Plan (11/12/2023 7:21 PM CRIPPLE CUTTER): Chronic Stable Cont lisinopril Goal: SBP<140, DBP<90 Assessment & Plan (06/16/2023 4:47 AM CDT): Chronic Stable Cont lisinopril, norvasc Goal: SBP<140, DBP<90 Assessment & Plan (03/10/2022 4:33 AM CDT): stable Cont lisinopril, norvasc Goal: SBP<140, DBP<90 Assessment & Plan (10/24/2021 5:46 PM CRIPPLE CUTTER): Better Cont lisinopril/hctz Goal: SBP<140, DBP<90 Assessment [...] 30mg Assessment & Plan (10/10/2019 3:30 PM CRIPPLE CUTTER): Hypertension is stable. Continue current medications. Blood pressure will be reassessed at the next regular appointment Cont lisinopril. Assessment & Plan (03/25/2019 10:28 AM CDT): Hypertension is stable. Continue current medications. Blood pressure will be reassessed at the next regular appointment Cont lisinopril. Current Oncology Plans No current plan information found. Past Plans No past plan information found. Radiation Treatments * Plan Last Treated On Elapsed Days Fractions Treated Prescribed Fraction Dose Prescribed Total Dose LT BREAST 08/09/2021 27 15 267 cGy 4,005 cGy L BRST E- BST 08/03/2021 21 5 250 cGy 1,250 cGy Reference Point Last Treated On Elapsed Days Session Dose Total Dose Breast_L DPV 08/09/2021 27 267 cGy 4,005 cGy DPV_Boost 08/03/2021 21 250 cGy 1,250 cGy Lifetime Dose Tracking * Chemical Lifetime Dose Automatic Entry Manual Entr y Fluoro Time 0.2 minutes 0.2 minutes 0 minutes Air kerma at the reference point (Ka,r) 1.139 mGy 1 .139 mGy 0 mGy Resolved Problems Problem Noted Date Diagnosed Date Resolved Date Cough 03/25/2019 05/15/2020 Assessment & Plan (03/25/2019 10:32 AM CDT): Treat for sinus infection Vitamin D deficiency 06/28/2016 024 Assessment & Plan (06/16/2023 4:46 AM CDT): Chronic Stable Cont vitamin d supplement Assessment & Plan (03/10/2022 4:29 AM CDT): Stable Cont vit d supplement Assessment & Plan (10/24/2021 5:47 PM CRIPPLE CUTTER): Stable Cont vit d supplement Assessment & Plan (06/28/2021 3:22 AM CDT): Stable Cont vit d supplement Assessment & Plan (05/15/2020 6:49 PM CDT): Stable, no changes. Continue current regimen with supplement Assessment & Plan (10/10/2019 3:30 PM CRIPPLE CUTTER): Stable Cont OTC vitamin d supplement Assessment & Plan (03/25/2019 10:28 AM CDT): Cont OTC vitamin d supplement
--- OUTSIDE RECORDS SUMMARY | 2024-11-04 15:44 | XMS_ITS | Clinical Summary ---
Author Organization [facility] Address [facility] [place] [address] [place] [address] Care Team Providers Care Personalization Specialist Name Role Phone Sadia Hutchinson MD Primary Care Provider [phone] Allergies Active Allergy Reactions Criticality Noted Date Comments Amoxicillin-Pot Clavulanate Headache Low 03/25/2019 Ciprofloxacin Headache Low 03/25/2019 Clindamycin Headache 09/03/2019 Erythromycin Rash Medium 03/25/2019 Hydrocodone Headache Low 03/25/2019 Nitrofurantoin Other (see comment) 06/20/2022 Migraine headache Sulfa Antibiotics Headache Low 03/25/2019 Medications Cholecalciferol (VITAMIN D) 50 MCG (1999 UT) Tab Take 2,000 Units by mouth daily. 03/25/2019 Active omeprazole 40 MG capsule 0 07/22/2019 Active lisinopril 20 MG tablet TAKE 1 TABLET BY MOUTH DAILY 10/31/2019 Active rosuvastatin 5 MG tablet TAKE 1 TABLET BY MOUTH DAILY 10/31/2019 Active anastrozole 1 MG tablet Take 1 mg by mouth daily. Active amLODIPine (NORVASC) 5 MG tablet 5 mg daily. 03/10/2022 Active probiotic (FLORAJEN3) Cap capsule Take 1 capsule by mouth 3 (three) times daily with meals. Active Active Problems No known active problems Immunizations Name Administration Dates Next Due Influenza (Generic) 07/19/2021,07/15/2021,2019,07/16/2020,07/24/2019 Social History Tobacco Use Types Packs/Day Years Used Date Smoking Tobacco: Never Smokeless Tobacco: Never Alcohol Use Standard Drinks/Week Comments No 0 (1 standard drink = 0.6 oz pur e alcohol) AUDIT-C Answer Date Recorded Frequency of Alcohol Consumption Never 09/03/2019 Average Number of Drinks Not on file 019 Frequency of Binge Drinking Not on file 08/10 PHQ-2 Answer Date Recorded PHQ-2 Score - If the patient scores above 3, please move on to questions 3-9 0 06/20/2022 Comments No Sex and Gender Information Value Date Recorded Sex Assigned at Not on file Legal Sex Female 11:17 PM CDT Gender Identity Not on file Sexual Orientation Not on file Last Filed Vital Signs Vital Sign Reading Time Taken Comments Blood Pressure 192/92 06/20/2022 6:41 PM CDT Pulse 120 06/20/2022 6:41 PM CDT Temperature 36.8 ??C (98.2 ??F) 06/20/2022 6:41 PM CD T Respiratory Rate 18 06/20/2022 6:41 PM CDT Oxygen Saturation 98% 06/20/2022 6:41 PM CDT Inhaled Oxygen Concentration - - Weight 97.1 kg (214 lb) 06/20/2022 6:41 PM CDT Height 165.1 cm (5' 5 ) 06/20/2022 6:41 PM CDT Body Mass Index 35.61 06/20/2022 6:41 PM CDT Plan of Treatment Health Maintenance Due Date Last Done Comments Colorectal Cancer Screening Colonoscopy (10 Years) 1957 Hepatitis C 1975 DTaP, Tdap and Td Vaccines (1 - Tdap) 1976 Mammogram Screening 1997 Zoster Vaccines (1 of 2) 2007 Annual Medicare Wellness Visit 2022 Pneumococcal Vaccine: 65+ Years (1 of 1 - PCV) 2022 COVID-19 Vaccine ( - season) 2024 10/26/2021, 12/24/2020, 11/26/2020 Influenza Adult (#1) 2024 07/19/2021, 07/15/2021, 07/28/2020, Additional history exists RSV Immunization or 60+ Years (1 - 1-dose 75+ series) 2032 Dexa Scan (General) Completed 08/06/2021 Meningococcal B Vaccine Aged Out No l onger eligible based on patient's age to complete this topic Meningococcal Vaccine Aged Out No jannette jenny eligible based on patient's age to complete this topic RSV Immunizations Under 20 Months Aged Out No longer eligible based on patient's age to complete this topic Insurance [facility] Member Subscriber Plan / Payer (Ef fective 2022-Present) Name:Luciana Anderson Relation to Subscriber:Self Name:Luciana Anderson Payer ID:Not on file Group ID:[id number] Type:[employer] Secretary Address: [address] [place] [id number] Care Teams Personalization Specialist Relationship Specialty Start Date End Date Sadia Hutchinson MD PCP - General FAMILY PRACTICE 09/03/19
--- OUTSIDE RECORDS SUMMARY | 2024-11-04 15:44 | XMS_ITS | Clinical Summary ---
Author Organization [facility] Address [address] [place] [address] Care Team Providers Care Telegraph Installer Name Role Phone Sadia Michaud MD Primary Care Provider [phone] Allergies Active Allergy Reactions Criticality Noted Date Comments Amoxicillin-Pot Clavulanate Headache Low 03/25/2019 Ciprofloxacin Headache Low 03/25/2019 Clindamycin Headache Low 09/03/2019 Erythromycin Rash Medium 03/25/2019 Hydrocodone Headache Low 03/25/2019 Nitrofurantoin Other (See Comments) Low 06/20/2022 Migraine headache Sulfa (Sulfonamide Antibiotics) Headache Low 03/25/2019 Vancomycin Headache Low 06/08/2021 Medications rosuvastatin (CRESTOR) 5 mg tablet Take 5 mg by mouth daily. 2 Active omeprazole (PriLOSEC) 40 mg Capsule, Delayed Release(E.C.) Take 40 mg by mouth daily. 2 Active lisinopriL (PRINIVIL) 20 mg tablet Take 20 mg by mouth daily. 2 Active L. acidophilus/Bifi d. animalis 32 billion cell Capsule Take 1 Capsule by mouth. Active cholecalciferol (vitamin D3) 50 mcg (2,000 unit) tablet Take 2,000 Units by mouth daily. 0 Active amLODIPine (NORVASC) 5 mg tablet Take 5 mg by mouth daily. 2 Active anastrozole (ARIMIDEX) 1 mg tablet Take 1 mg by mouth daily. 2 Active apixaban (ELIQUIS) 2.5 mg tablet Take 1 Tablet (2.5 mg) by mouth 2 times daily. 60 Tablet 05/13/2023 2:01 PM CDT 3 Active oxyCODONE-acetam inophen (Percocet) 5-325 mg tabletIndication s:Status post total replacement of left hip Take 1 Tablet by mouth every 4 hours as needed for Pain, Moderate. Max Daily Amount: 6 Tablets 30 Tablet 05/13/2023 2:01 PM CDT 3 Active docusate sodium (COLACE) 100 mg capsule Take 1 Capsule (100 mg) by mouth 2 times daily. 30 Capsule 1 05/13/2023 2:01 PM CDT 3 Active amoxicillin (AMOXIL) 500 mg capsuleIndicatio ns:Status post total replacement of left hip Take 4 capsules by mouth 1 hour prior to dental visit 4 Capsule 1 3 Active Active Problems Problem Noted Date Diagnosed Date Primary osteoarthritis of left hip 02/27/2023 Encounters Date Type Department Care Team Description 08/13/2024 External Device Data ST[facility] ABSTRACTION Provider, Abstract from Last 3 Months Social History Tobacco Use Types Packs/Day Years Used Date Smoking Tobacco: Never Tobacco Cessation:Counseling Given: Not Answered Alcohol Use Standard Drinks/Week Comments Never 0 (1 standard drink = 0.6 oz pur e alcohol) Feeling Safe Answer Date Recorded Are you in a relationship wi th someone who hurts you emotionally and/or physically? 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 Gender Identity Not on file Sexual Orientation Not on file Last Filed Vital Signs Vital Sign Reading Time Taken Comments Blood Pressure 183/103 06/06/2023 10:14 AM CDT Pulse 86 06/06/2023 10:14 AM CDT Temperature 36.6 ??C (97.9 ??F) 05/13/2023 4:26 PM CD T Respiratory Rate 22 05/13/2023 4:26 PM CDT Oxygen Saturation 100% 05/13/2023 4:26 PM CDT Inhaled Oxygen Concentration - - Weight 97.1 kg (214 lb) 05/12/2023 7:50 AM CDT Height 165.1 cm (5' 5 ) 05/12/2023 7:50 AM CDT Body Mass Index 35.61 05/12/2023 7:50 AM CDT Plan of Treatment Health Maintenance Due Date Last Done Comments DTAP/TDAP/TD VACCINES (1 - Tdap) 1976 COLORECTAL SCREENING 2002 Colorectal Cancer Screening 2002 FIT-DNA Q 3 years 2002 FIT/FOBT Q 1 year 2002 Flex Sig/CT Colonography Q 5 years 2002 PNEUMOCOCCAL VACCINE 65+ YEA RS (1 of 1 - PCV) 2007 ZOSTER VACCINE (1 of 2) 2007 BREAST CANCER SCREENING 04/04/2024 04/04/20 23, 03/21/2022, 04/09/2021, Additional history exists INFLUENZA VACCINE (#1) 2024 2, 07/15/2021, 07/16/2020, Additional history exists COVID-19 Vaccine (2023-2 5 season) 2024 10/26/2021, 12/24/2020, 11/26/2020 RSV VACCINE (60+ or ) (1 - 1-dose 75+ series) 2032 OSTEOPOROSIS SCREENING Completed 08/06/2021, 2012 Medical Devices Implanted Type Area Hand Slitter Device Identifier Shelf Expiration Date Model / Serial / Lot Shell G7 Pps Lmtd Hl 50mm [id number] - [id number] Implanted:Qty: 1 on 05/12/2023 by Jaime Mobley MD at [facility] Hip Left: Hip [employer]IC [employer]ET [id number] 11/02/2032 [id number] / / [id number] Stem Fem Taperloc R/D [id number] - [id number] Implanted:Qty: 1 on 05/12/2023 by Jaime Mobley MD at [facility] Hip Left: Hip [employer] [id number] 12/26/2032 [id number] / / [id number] Acetabular System Vivacit-E Vitamin Highly Crosslinked Polyethylene Liner Implanted:Qty: 1 on 05/12/2023 by Jaime Mobley MD at [facility] Left: Hip [employer] [id number] 10/31/2027 [id number] / / [id number] Biolox Delta Modular Ceramic Head Implanted:Qty: 1 on 05/12/2023 by Jaime Mobley MD at [facility] Left: Hip [employer]IC [employer]ET [id number] 09/21/2032 [id number] / / [id number] Insurance MEDICARE PART A AND B [facility] RX [employer] Medicare Part D RX [employer] Commercial Advance Directives For more information, please contact: [phone] * Full Code (Latest Code Status on File) Date Activated Date Inactivated Comments 05/12/2023 1:17 PM 05/13/2023 7:07 PM * Default Full Code - Needs Discussion Date Activated Date Inactivated Comments 05/12/2023 7:54 AM 05/12/2023 1:17 PM Care Teams Telegraph Installer Relationship Specialty Start Date End Date Sadia Michaud MD PCP - General Family Practice 12/13/22
== END 2024-11-04 14:48 | disposition home or self-care (01) ==
PROVIDERS: PCP Family Medicine; Visit Provider Urology
DX: N20.1 Calculus of ureter (principal)
CPT/HCPCS: 74018; 74176

== ENCOUNTER 2025-05-23 10:35 | Outpatient (CLI) | payer MEDICARE, OTHER, SELFPAY ==
--- NOTE | ~2025-05-23 | XR_ITS ---
XR abdomen/kub 1V 05/23/2025 10:59 Indication: Ureteral stone Procedure: KUB Comparison: 11/04/2024 Findings: Nonspecific bowel gas pattern. No significant small bowel dilation. There is a stone at the upper pole of the right kidney. There are possible left renal stones. Kidneys obscured by bowel gas. There is a left hip arthroplasty. Moderate lumbar spondylosis with levoscoliosis. Impression: 1: Right nephrolithiasis. Probable left renal stones. Consider correlation with CT. Reviewed, dictated and finalized at location A. Impression: 1: Right nephrolithiasis. Probable left renal stones. Consider correlation with CT.
--- OUTSIDE RECORDS SUMMARY | 2025-05-23 10:41 | XMS_ITS | Encounter Summary ---
Author Organization [facility] Address [address] [place] [address] Care Team Providers Care Linux Admin Engineer Name Role Phone Sadia Michaud MD Primary Care Provider [phone] Javi Kent MD Unavailable [phone] Sonya Huizar NP Unavailable [phone] Juan Luis Mora MD Unavailable [phone] Caitie Davies MD Unavailable [phone] Encounter Details Date Type Department Care Team (Late st Contact Info) Description 11/04/2024 Orders Only [facility] Health Information Management [address] [place] [id number] Scanning, Provider Social History Tobacco Use Types Packs/Day Years [...] on file 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 Gender Identity Female 12/12/2020 10:44 AM 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 Sexual Orientation Not on file documented as of this encounter Plan of Treatment Not on file documented as of this encounter Procedures Procedure Name Priority Date/Time Associated Diagnosis Comments SCAN - RADIOLOGY/IMAGING 11/04/2024 documented in this encounter Results * SCAN - RADIOLOGY/IMAGING (11/04/2024) Anatomical Region Laterality Modality Other us Provider Scanning Final Result documented in this encounter Visit Diagnoses Not on filedocumented in this encounter Care Teams Linux Admin Engineer Relationship Specialty Start Date End Date Sadia Michaud MD PCP - General 11/26/18 Javi Kent MD [address] [facility] [address] [place], [place] [id number] Surgeon Surgery 05/05/21 Sonya Huizar NP [address] [facility] [address] [place], [place] [id number] Nurse Practitioner Medical Oncology 01/04/23 Juan Luis Mora MD [address] [facility] [address] [place], [place] [address] Surgeon General Surgery 10/05/23 Caitie Davies MD [address] [facility] [address] [place], [place] [address] Radiation Oncologist Radiation Oncology 06/04/24 documented as of this encounter
--- OUTSIDE RECORDS SUMMARY | 2025-05-23 10:41 | XMS_ITS ---
Author Organization [facility] Address [address] [place] [address] Care Team Providers Care Treasury Consultant Name Role Phone Sadia Michaud MD Primary Care Provider [phone] Javi Kent MD Unavailable [phone] Sonya Huizar NP Unavailable [phone] Juan Luis Mora MD Unavailable [phone] Caitie Davies MD Unavailable [phone] Active Problems Problem Noted Date Diagnosed Date [...] pulmonary Assessment & Plan (11/12/2023 7:18 PM FRANCHISE BROKER): Persistent Order cefdinir, medrol, yamilex kaur AC Primary osteoarthritis of left hip 02/27/2023 Encounter for Medicare annual wellness exam 04/2022 Assessment & Plan (03/23/2025 9:50 PM CDT): Patient here for annual Medicare wellness visit [...] update and summary of today's office visit. Assessment & Plan (09/23/2022 3:15 PM FRANCHISE BROKER): Patient here for annual Medicare wellness visit [...] 09/14/20 Assessment & Plan (11/12/2023 7:18 PM FRANCHISE BROKER): Persistent Order cefdinir, medrol, astlein Onychomycosis of [...] DBP<90 Assessment & Plan (11/12/2021 9:40 AM FRANCHISE BROKER): Uncontrolled Since changing the prinzide to lisinopril [...] stage from 04/16/2021: cT1c, cN0, cM0, ER+, GA+, HER2- - Signed by Caitie Davies MD on 05/05/2021 Pathologic stage from 05/27/2021:Stage IA(pT1c, pN0, cM0, G2, ER+, GA+, HER2-) - Signed by Caitie Davies MD on 07/05/2021 Left hip pain 12/15/2020 Assessment & Plan (03/10/2022 4:31 AM CDT): Worsening pain Order PT Assessment & Plan (12/21/2020 5:52 AM CDT): Worsening Refer to ortho Memory difficulties 12/15/2020 Assessment & Plan (12/21/2020 5:53 AM CDT): New Refer to [facility] History of radiation therapy 10/09/2020 Overview (09/16/2021): Left breast Elevated alkaline phosphatase level 10/10/2019 Assessment & Plan (06/17/2024 10:25 AM CDT): Chronic and stable Possibly due to chemotherapy Refer to GI Assessment & Plan (05/15/2020 6:48 PM CDT): Resolved - normal on recent labs Assessment & Plan (10/10/2019 3:31 PM FRANCHISE BROKER): Order liver ultrasound Monitor alkaline phosphatase 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 Assessment & Plan (06/17/2024 10:20 AM CDT): Refer to GI Omeprazole refilled Follow-up in 6 months Assessment & Plan (11/12/2023 7:20 PM FRANCHISE BROKER): Chronic Stable Cont omeprazole Assessment & Plan [...] PPI Assessment & Plan (10/10/2019 3:30 PM FRANCHISE BROKER): Stable Cont prilosec Assessment & Plan (03/25/2019 10:27 AM CDT): Cont prilosec Hyperlipidemia 06/28/2016 Assessment & Plan (06/17/2024 10:24 AM CDT): Rosuvastatin 5 mg refilled Continue [id number] fish oil Follow-up in 6 months Assessment & Plan (12/20/2023 12:07 PM CDT): Chronic Stable Cont crestor, lovaza Goal: TC<200, LDL<100, TG<150 Assessment & Plan (06/16/2023 4:46 AM CDT): Chronic TG increased Add fish oil Cont crestor Goal: TC<200, LDL<100, TG<150 Assessment & Plan (03/10/2022 4:28 AM CDT): Stable Cont crestor Goal:TC<200, LDL<100 Assessment & Plan (10/24/2021 5:46 PM FRANCHISE BROKER): Stable Cont crestor Goal:TC<200, LDL<100 Assessment & Plan (07/15/2021 5:52 AM CDT): Stable Cont crestor Goal:TC<200, LDL<100 Assessment & Plan (06/28/2021 3:22 AM CDT): Stable Cont crestor Goal:TC<200, LDL<100 Assessment & Plan (12/21/2020 5:53 AM CDT): Stable Cont crestor Assessment & Plan (05/15/2020 6:48 PM CDT): Stable, no changes. Continue current regimen with Crestor Assessment & Plan (10/10/2019 3:30 PM FRANCHISE BROKER): Lipid abnormalities are improving. cont crestor Lipids [...] DBP<90 Assessment & Plan (11/12/2023 7:21 PM FRANCHISE BROKER): Chronic Stable Cont lisinopril Goal: SBP<140, DBP<90 Assessment & Plan (06/16/2023 4:47 AM CDT): Chronic Stable Cont lisinopril, norvasc Goal: SBP<140, DBP<90 Assessment & Plan (03/10/2022 4:33 AM CDT): stable Cont lisinopril, norvasc Goal: SBP<140, DBP<90 Assessment & Plan (10/24/2021 5:46 PM FRANCHISE BROKER): Better Cont lisinopril/hctz Goal: SBP<140, DBP<90 Assessment [...] 30mg Assessment & Plan (10/10/2019 3:30 PM FRANCHISE BROKER): Hypertension is stable. Continue current medications. Blood pressure will be reassessed at the next regular appointment Cont lisinopril. Assessment & Plan (03/25/2019 10:28 AM CDT): Hypertension is stable. Continue current medications. Blood pressure will be reassessed at the next regular appointment Cont lisinopril. Current Treatment and Therapy Plans No current plan information found. Past Treatment and Therapy Plans No past plan information found. Radiation Treatments * Course [id number] - 08/09/2021 Treatment Period Energy Fraction Dose Fractions Total Dose Plans Planned LT BREAST 07/13/2021 - 08/09/2021 267 15 / 4,005 L BRST E- BST 07/28/2021 - 08/03/2021 250 5 / 1,250 Reference Points Delivered Breast_L DPV 07/13/2021 - 08/09/2021 4,005 DPV_Boost 07/28/2021 - 08/03/2021 1,250 Lifetime Dose Tracking * Chemical Lifetime Dose [...] supplement Assessment & Plan (10/24/2021 5:47 PM FRANCHISE BROKER): Stable Cont vit d supplement Assessment & Plan (06/28/2021 3:22 AM CDT): Stable Cont vit d supplement Assessment & Plan (05/15/2020 6:49 PM CDT): Stable, no changes. Continue current regimen with supplement Assessment & Plan (10/10/2019 3:30 PM FRANCHISE BROKER): Stable Cont OTC vitamin d supplement Assessment & Plan (03/25/2019 10:28 AM CDT): Cont OTC vitamin d supplement
--- OUTSIDE RECORDS SUMMARY | 2025-05-23 10:41 | XMS_ITS | Clinical Summary ---
Author Organization [facility] Center Address [address] [place] [address] Care Team Providers Care Trim Stencil Maker Name Role Phone Sadia Michaud MD Primary Care Provider [phone] Javi Kent MD Unavailable [phone] Sonya Huizar NP Unavailable [phone] Juan Luis Mora MD Unavailable [phone] Caitie Davies MD Unavailable [phone] Allergies Active Allergy Reactions Criticality Noted Date [...] day 120 capsule 11 06/16/20 23 Active omeprazole (PriLOSEC) 40 mg capsuleIndications:[place]umbull tt's esophagus without dysplasia Take 1 capsule (40 mg total) by mouth daily 90 capsule 3 06/17/20 24 025 Active amLODIPine (NORVASC) 5 mg tabletIndications:Primar y hypertension Take 1 tablet (5 mg total) by mouth daily 90 tablet 3 03/12/20 25 026 Active lisinopriL (PRINIVIL,ZESTRIL) 20 mg tabletIndications:Primar y hypertension Take 1 tablet (20 mg total) by mouth daily 90 tablet 3 03/12/20 25 026 Active rosuvastatin (CRESTOR) 5 mg tabletIndications:Pure hypercholesterolemia Take 1 tablet (5 mg total) by mouth daily 90 tablet 3 03/12/20 25 026 Active cetirizine (ZyrTEC) 10 mg tablet Take 1 tablet (10 mg total) by mouth daily 90 tablet 1 03/17/20 25 025 Active anastrozole (ARIMIDEX) 1 mg tablet Take 1 tablet (1 mg total) by mouth daily 90 tablet 3 03/18/20 25 Active Active Problems Problem Noted Date Diagnosed [...] pulmonary Assessment & Plan (11/12/2023 7:18 PM [employer]): Persistent Order cefdinir, medrol, breztriyamilex AC Primary osteoarthritis of left hip 02/27/2023 Encounter for Medicare annual wellness exam 0 04/2022 Assessment & Plan (03/23/2025 9:50 PM [...] visit. Assessment & Plan (09/23/2022 3:15 PM [employer]): Patient here for annual Medicare wellness visit [...] 09/14/20 Assessment & Plan (11/12/2023 7:18 PM [employer]): Persistent Order cefdinir, medrol, astlein Onychomycosis of [...] DBP<90 Assessment & Plan (11/12/2021 9:40 AM [employer]): Uncontrolled Since changing the prinzide to lisinopril [...] stage from 04/16/2021: cT1c, cN0, cM0, ER+, TX+, HER2- - Signed by Caitie Davies MD on 05/05/2021 Pathologic stage from 05/27/2021:Stage IA(pT1c, pN0, cM0, G2, ER+, TX+, HER2-) - Signed by Caitie Davies MD [...] labs Assessment & Plan (10/10/2019 3:31 PM [employer]): Order liver ultrasound Monitor alkaline phosphatase 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 Assessment & Plan (06/17/2024 10:20 AM CDT): Refer to GI Omeprazole refilled Follow-up in 6 months Assessment & Plan (11/12/2023 7:20 PM [employer]): Chronic Stable Cont omeprazole Assessment & Plan [...] PPI Assessment & Plan (10/10/2019 3:30 PM [employer]): Stable Cont prilosec Assessment & Plan (03/25/2019 10:27 AM CDT): Cont prilosec Hyperlipidemia 06/28/2016 Assessment & Plan (06/17/2024 10:24 AM CDT): Rosuvastatin 5 mg refilled Continue eryu-vsb-towvbzx fish oil Follow-up in 6 months Assessment & Plan (12/20/2023 12:07 PM CDT): Chronic Stable Cont crestor, lovaza Goal: TC<200, LDL<100, TG<150 Assessment & Plan (06/16/2023 4:46 AM CDT): Chronic TG increased Add fish oil Cont crestor Goal: TC<200, LDL<100, TG<150 Assessment & Plan (03/10/2022 4:28 AM CDT): Stable Cont crestor Goal:TC<200, LDL<100 Assessment & Plan (10/24/2021 5:46 PM [employer]): Stable Cont crestor Goal:TC<200, LDL<100 Assessment & Plan (07/15/2021 5:52 AM CDT): Stable Cont crestor Goal:TC<200, LDL<100 Assessment & Plan (06/28/2021 3:22 AM CDT): Stable Cont crestor Goal:TC<200, LDL<100 Assessment & Plan (12/21/2020 5:53 AM CDT): Stable Cont crestor Assessment & Plan (05/15/2020 6:48 PM CDT): Stable, no changes. Continue current regimen with Crestor Assessment & Plan (10/10/2019 3:30 PM [employer]): Lipid abnormalities are improving. cont crestor Lipids [...] DBP<90 Assessment & Plan (11/12/2023 7:21 PM [employer]): Chronic Stable Cont lisinopril Goal: SBP<140, DBP<90 Assessment & Plan (06/16/2023 4:47 AM CDT): Chronic Stable Cont lisinopril, norvasc Goal: SBP<140, DBP<90 Assessment & Plan (03/10/2022 4:33 AM CDT): stable Cont lisinopril, norvasc Goal: SBP<140, DBP<90 Assessment & Plan (10/24/2021 5:46 PM [employer]): Better Cont lisinopril/hctz Goal: SBP<140, DBP<90 Assessment [...] 30mg Assessment & Plan (10/10/2019 3:30 PM [employer]): Hypertension is stable. Continue current medications. Blood [...] supplement Assessment & Plan (10/24/2021 5:47 PM [employer]): Stable Cont vit d supplement Assessment & Plan (06/28/2021 3:22 AM CDT): Stable Cont vit d supplement Assessment & Plan (05/15/2020 6:49 PM CDT): Stable, no changes. Continue current regimen with supplement Assessment & Plan (10/10/2019 3:30 PM [employer]): Stable Cont OTC vitamin d supplement Assessment & Plan (03/25/2019 10:28 AM CDT): Cont OTC vitamin d supplement Encounters Date Type Department Care Team Description 05/06/2025 Telephone [facility] [place] [address] Renetta Suarez RN 05/05/2025 8:13 AM CDT - 05/05/2025 11:59 PM CDT Hospital Encounter [facility] Medical Office Bldg 1 [facility] [address] [place] [address] Visit for screening mammogram Discharge Disposition: Discharge to home or self care 03/18/2025 10:00 AM CDT Office Visit [facility] [address] [place] [phone] Sonya Huizar NP Malignant neoplasm of upper-outer quadrant of left breast in female, estrogen receptor positive (HCC) (Primary Dx); Vitamin D deficiency; Use of anastrozole; Osteoporosis screening 03/12/2025 2:45 PM CDT Office Visit [facility] [address] [facility] [address] [place] [phone] Sadia Michaud MD Encounter for Medicare annual wellness exam (Primary Dx); Primary hypertension; Mixed hyperlipidemia; 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 Lab [address] [place] [address] Malignant neoplasm of upper-outer quadrant of left breast in female, estrogen receptor positive (HCC); Vitamin D deficiency 03/10/2025 11:[address] [facility] [address] [place] [address] Mixed hyperlipidemia; Elevated alkaline phosphatase level from Last 3 Months Immunizations Immunization Administration Dates Next Due Influenza, Trivalent, Preser vative Free, Intramuscular 07/27/2023,07/26/2022,07/15/2021,07/16,07/24/2019 Influenza, Unspecified 07/09/2024(Deferr ed: Patient Refused),07/26/2022,07/19/2021,2 021,07/15/2021,07/28/2020,07/28/2020,1 ,07/24/2019 Moderna SARS-CoV-2 Monovalen t Vaccination (12+ [...] points, staff should administer the PHQ-9) 0 03/12/2025 PHQ-9 Answer Date Recorded PHQ-9 Total Score 4 03/12/2025 Comments No Sex and Gender Information Value Date Recorded Sex Assigned at Not on file Legal Sex Female 12:16 AM [employer] Gender Identity Female 12/12/2020 10:44 AM [employer] Sexual Orientation Not on file Obstetrics History Para Term AB IAB SAB Ectopic Multiple Livin g Live Births 5 4 4 Date Outcome GA Total Labor Labor//3rd Weight Sex Type Anes PTL Nette A1 A5 Name Clin Term Term Term Term Last Filed Vital Signs Vital Sign Reading Time Taken Comments Blood Pressure 146/87 03/18/2025 10:17 AM CDT Pulse 67 03/18/2025 10:17 AM CDT Temperature 36.7 C (98.1 F) 03/18/2025 10:17 AM CDT Respiratory Rate 16 03/18/2025 10:17 AM CDT Oxygen Saturation 100% 03/18/2025 10:17 AM CDT Inhaled Oxygen Concentration - - Weight 91.4 kg (201 lb 8 oz) 03/18/2025 10:17 AM CDT no shoes Height 165 cm (5' 4.96) 03/18/2025 10:17 AM CDT Body Mass Index 33.57 03/18/2025 10:17 AM CDT Plan of Treatment Health Maintenance Due Date Last Done Comments Colon Cancer Screening-Colonoscopy 1957 DTaP/Tdap/Td Vaccine (1 - Tdap) 1968 Hepatitis B Screening 1975 Pneumococcal vaccine 65+ (1 of 2 - PCV) 1976 Zoster Vaccine (1 of 2) 1976 Well Visit 65+ 09/14/2023 09/14/2022 Covid-19 Vaccine (4 - 2023-2 5 season) 2024 10/26/2021, 12/24/2020, 11/26/2020 Influenza Vaccine (#1) 2025 3, 07/26/2022, 07/26/2022, Additional history exists Osteoporosis Screening-Bone Density Scan 07/21/2025 07/21/2023, 08/06/2021, 01/24/2013 Depression Screening 03/12/2026 03/12/2025, 03/12/2025, 10/30/2023, Additional history exists Fall Risk Assessment 03/12/2026 03/12/2025, 10/30/2023, 09/14/2022, Additional history exists Breast Cancer Screening-Mammogram 05/05/2026 05/05/2025, 04/12/2024, 04/04/2023, Additional history exists Hepatitis C Screening Completed 07/05/2021 Medical Devices Explanted Type Area Blueprint Reproducer Device Identifier Shelf Expiration Date Model / Serial / Lot Application Release [employer] [id number] Hastings 20ga 7.5cm 2 Part Stabilizer Repositionable Depth Albino - [id number] Explanted:Qty: 1 on 05/27/[address] [facility] [employer] Release [employer] [id number] / / Application [employer] [id number] Hastings 20ga 5cm Reposition J Curve Wire Centimeter Albino Stabilizer - [id number] Explanted:Qty: 1 on 05/27/[address] [facility] Application Release [employer] 10/16/2025 [id number] / / Procedures Procedure Name Priority Date/Time Associated Diagnosis Comments SCREENING MAMMOGRAM BILATERAL W SHASHANK Schedule Routine, Read Routine (OP Routine) 05/05/2025 8:34 AM CDT Visit for screening mammogram EGFR Routine 03/10/2025 12:02 PM CDT Mixed hyperlipidemia Elevated alkaline phosphatase level DIFFERENTIAL AUTO Routine 03/10/2025 12: 02 PM CDT Malignant neoplasm of upper-outer quadrant of left breast in female, estrogen receptor positive (HCC) COMPREHENSIVE METABOLIC PANEL Routine 03/10/2025 12:02 PM CDT Mixed hyperlipidemia Elevated alkaline phosphatase level LIPID PANEL Routine 03/10/2025 12:02 PM CDT Mixed hyperlipidemia Elevated alkaline phosphatase level CBC WITH AUTO DIFFERENTIAL Routine 03/10/2025 12:02 PM CDT Malignant neoplasm of upper-outer quadrant of left breast in female, estrogen receptor positive (HCC) VITAMIN D 25 HYDROXY Routine 03/10/2025 12:02 PM CDT Malignant neoplasm of upper-outer quadrant of left breast in female, estrogen receptor positive (HCC) Vitamin D deficiency DEXA AXIAL SKELETON BONE DENSITY 1 OR MORE SITES Schedule Routine, Read Routine (OP Routine) 07/21/2023 10:11 AM CDT Post-menopausal osteoporosis HEPATITIS PANEL, ACUTE Routine 07/05/2021 12:34 PM CDT from Last 3 Months or Most Recently Relevant to Health Maintenance Results * Screening Mammogram Bilateral W Shashank (05/05/2025 8:34 AM CDT) Anatomical Region Laterality Modality Breast Bilateral Mammography Impressions 05/05/2025 9:14 AM CDT Bilateral No evidence of malignancy in either breast. OVERALL BI-RADS FINAL ASSESSMENT: 2 - Benign RECOMMENDATION: Recommend bilateral annual screening mammography. Narrative 05/05/2025 9:14 AM CDT EXAMINATION: Screening Mammogram Bilateral W Shashank: 05/05/2025 COMPARISON: Relevant prior studies available at the time of interpretation were reviewed, including the most recent mammogram on: 04/12/2024. TECHNIQUE: Mammography was performed with 2D and digital breast tomosynthesis (DBT) images. CAD was utilized. BREAST PARENCHYMAL COMPOSITION: The breasts are almost entirely fatty. FINDINGS: Left 1) Post-Surgical Finding: There are post-surgical findings from a previous lumpectomy seen in the left breast. This finding is benign. There is no suspicious mass, calcification, or architectural distortion. Right There is no suspicious mass, calcification, or architectural distortion. Bilateral 2) Calcifications: There are benign calcifications seen in both breasts. This finding is benign. There is no suspicious mass, calcification, or architectural distortion in either breast. Juan Luis Mora MD IMG MAMMO PROCEDURES Final Res ult * (ABNORMAL) eGFR (03/10/2025 12:02 PM CDT) eGFR 59(L) >=60 mL/min/1. 73 m2 Comment: Interpretive Data Reference Interval Normal >/= 90 mL/min/1.73m2 Mildly decreased* 60 - 89 mL/min/1.73m2 Mildly to moderately decreased 45 - 59 mL/min/1.73m2 Moderately to severely decreased 30 - 44 mL/min/1.73m2 Severely decreased 15 - 29 mL/min/1.73m2 Kidney Failure < 15 mL/min/1.73m2 *Relative to young adult level Estimated glomerular filtration rate is determined by the 2020 CKD-EPI equation recommended by the National Kidney Foundation (A Unifying Approach to GFR Estimation: Recommendations of the NKF-ASK Task Force on Reassessing the Inclusion of Race in Diagnosing Kidney Disease, JASN 2020). The CKD-EPI equation should not be used for patients with unstable renal function and has not been validated in children and those over 70. Current interpretive data was last reviewed 2021. Testing performed by: [address] [address] Blood 03/10/2025 12:0 2 PM CDT 03/10/2025 12:08 PM CDT us Sadia Michaud MD LAB BLOOD ORDERABLES Deysi l Result [facility] [address] [facility] Department [place] [address] * Differential, auto (03/10/2025 12:02 PM CDT) Pathologist [facility] Neutrophil abs 4.55 1.50 - 6.50 K/cumm Comment:Testing performed by : [address] [address] Imm gran abs 0.02 0.00 - 0.10 K/cumm LYN Comment:Testing performed by : [address] [address] Lymphocyte abs 1.78 0.80 - 3.30 K/cumm LYN Comment:Testing performed by : [address] [place]., [address] Monocyte abs 0.60 0.20 - 0.80 K/cumm [facility] Comment:Testing performed by : [address] [address] Eosinophil abs 0.30 0.00 - 0.50 K/cumm [facility] Comment:Testing performed by : [address] [address] Basophil abs 0.04 0.00 - 0.10 K/cumm [facility] Comment:Testing performed by : [address] [address] Neutrophil pct 62.5 % [facility] Comment: Interpretive Data Percent cell count reference ranges are not reported, since discordance with absolute values may lead to misinterpretation of CBC data. Current Interpretive Data was last revised on 2018. Testing performed by: [address] [address] Imm gran pct 0.3 % [facility] Comment: Interpretive Data Percent cell count reference ranges are not reported, since discordance with absolute values may lead to misinterpretation of CBC data. Current Interpretive Data was last revised on 2018. Testing performed by: [address] [address] Lymphocyte pct 24.4 % [facility] Comment: Interpretive Data Percent cell count reference ranges are not reported, since discordance with absolute values may lead to misinterpretation of CBC data. Current Interpretive Data was last revised on 2018. Testing performed by: [address] [address] Monocyte pct 8.2 % [facility] Comment: Interpretive Data Percent cell count reference ranges are not reported, since discordance with absolute values may lead to misinterpretation of CBC data. Current Interpretive Data was last revised on 2018. Testing performed by: [address] [address] Eosinophil pct 4.1 % [facility] Comment: Interpretive Data Percent cell count reference ranges are not reported, since discordance with absolute values may lead to misinterpretation of CBC data. Current Interpretive Data was last revised on 2018. Testing performed by: [address] [address] Basophil pct 0.5 % [facility] Comment: Interpretive Data Percent cell count reference ranges are not reported, since discordance with absolute values may lead to misinterpretation of CBC data. Current Interpretive Data was last revised on 2018. Testing performed by: [address] [address] Blood 03/10/2025 12:0 2 PM CDT 03/10/2025 12:08 PM CDT Sonya Huizar BARBACK LAB BLOOD ORDERABLES Final Result [facility] [facility] Department [place] [address] * CBC with auto differential (03/10/2025 12:02 PM CDT) WBC 7.29 3.80 - 9.90 K/cumm Comment:Testing performed by : [address] [address] Hgb 14.8 11.9 - 15.5 g/dL [facility] Comment:Testing performed by : [address] [address] Hct 45.0 35.6 - 45.5 % [facility] Comment:Testing performed by : [address] [address] Plt 205 150 - 400 K/cumm [facility] Comment:Testing performed by : [address] [address] MPV 10.4 9.1 - 12.3 fL [facility] Comment:Testing performed by : [address] [address] RBC 4.94 3.90 - 5.20 M/cumm [facility] Comment:Testing performed by : [address] [address] MCV 91.1 81.3 - 96.4 fL [facility] Comment:Testing performed by : [address] [place]., [address] MCH 30.0 27.1 - 33.3 pg [facility] Comment:Testing performed by : [address] [address] MCHC 32.9 32.3 - 35.7 g/dL [facility] Comment:Testing performed by : [address] [address] RDW CV 13.7 11.1 - 14.9 % [facility] Comment:Testing performed by : [address] [address] RDW SD 45.7 35.7 - 48.1 fL [facility] Comment:Testing performed by : [address] [address] NRBC abs 0.00 0.00 - 0.01 K/cumm [facility] Comment:Testing performed by : [address], [address] Blood 03/10/2025 12:0 2 PM CDT 03/10/2025 12:08 PM CDT Sonya Huizar NP LAB BLOOD ORDERABLES Final Result Performing Organization Address City/[facility]/ZIP Co de Phone Number [address] [address] * Vitamin D 25 hydroxy (03/10/2025 12:02 PM CDT) [facility] Vitamin D 25-OH 77.0 30.0 - 80.0 ng/mL Blood 03/10/2025 12:0 2 PM CDT 03/10/2025 3:42 PM CDT Sonya Huizar NP LAB BLOOD ORDERABLES Final Result Performing Organization Address City/[facility] Co de Phone Number [address] [place] [address] * (ABNORMAL) Lipid panel (03/10/2025 12:02 PM CDT) Cholesterol 203(H) 30 - 199 mg/dL Comment: Interpretive Data Ages < or = 19 years Acceptable: <170 mg/dL Borderline high: 170-199 mg/dL High: >or= 200 mg/dL Ages > or = 20 years Desirable: <200 mg/dL Borderline high: 200-239 mg/dL High: >or= 240 mg/dL Literature References: 1. Expert Panel on Integrated Guidelines for Cardiovascular Health and Risk Reduction in Children and Adolescents. Pediatrics 2011;128:S213 2. NCEP Expert Panel. Circulation 2004;110:227 Current Interpretive Data was last revised on 2018. Testing performed by: [address] [address] Triglycerides 111 <=149 mg/dL LYN Comment: Interpretive Data Ages < or = 9 years Acceptable: <75 mg/dL Borderline high: 75-99 mg/dL High: >or= 100 mg/dL Ages 10 to 20 years Acceptable: <90 mg/dL Borderline high: 90-129 mg/dL High: >or= 130 mg/dL Ages > or = 20 years Desirable: <150 mg/dL Borderline high: 150-199 mg/dL High: 200-499 mg/dL Very high: >or= 499 mg/dL Literature References: 1. Expert Panel on Integrated Guidelines for Cardiovascular Health and Risk Reduction in Children and Adolescents. Pediatrics 2011;128:S213 2. NCEP Expert Panel. Circulation 2003;110:227 Current Interpretive Data was last revised on 2018. Testing performed by: [address] [address] HDL 73 >=40 mg/dL LYN Comment: Interpretive Data Ages < or = 19 years Acceptable: >45 mg/dL Borderline low: 40-45 mg/dL Low: <40 mg/dL Ages > or = 20 years Desirable: >or= 60 mg/dL Low: <40 mg/dL Literature References: 1. Expert Panel on Integrated Guidelines for Cardiovascular Health and Risk Reduction in Children and Adolescents. Pediatrics 2011;128:S213 2. NCEP Expert Panel. Circulation 2004;110:227 Current Interpretive Data was last revised on 2018. Testing performed by: [address] [address] LDL, calculated 111 <=129 mg/dL LYN Comment: Interpretive Data Ages < or = 19 years Acceptable: <110 mg/dL Borderline high: 110-129 mg/dL High: >or= 130 mg/dL Ages > or = 20 years Optimal: <100 mg/dL Near optimal: 100-129 mg/dL Borderline high: 130-159 mg/dL High: >160 mg/dL Calculated using the Jayy LDL-C estimating equation. This equation was implemented on 2024. Prior to this date LDL-C was estimated using the Friedewald equation. Literature References: 1. Expert Panel on Integrated Guidelines for Cardiovascular Health and Risk Reduction in Children and Adolescents. Pediatrics 2011;128:S213 2. NCEP Expert Panel. Circulation 2004;110:227 3. Jayy Bravo et al. TORO Cardiol. 2019February 06;5(5):540-548. doi: [email or web address] Current Interpretive Data was last revised on 2024. Testing performed by: [address] [address] Non-HDL Cholesterol 130 mg/dL LYN Comment: Interpretive Data Ages < or = 19 years Acceptable: <120 mg/dL Borderline high: 120-144 mg/dL High: >145 mg/dL Ages > or = 20 years When triglycerides are >200 mg/dL, Non-HDL cholesterol is a secondary target of therapy with treatment goals that are 30 mg/dL greater than the LDL cholesterol target. Literature References: 1. Expert Panel on Integrated Guidelines for Cardiovascular Health and Risk Reduction in Children and Adolescents. Pediatrics 2011;128:S213 2. NCEP Expert Panel. Circulation 2004;110:227 Current Interpretive Data was last revised on 2018. Testing performed by: [address] [address] Chol/HDL ratio 3 LYN Comment:Testing performed by : [address] [address] Blood 03/10/2025 12:0 2 PM CDT 03/10/2025 12:08 PM CDT Sadia Michaud MD LAB BLOOD ORDERABLES Deysi quinonez Result [facility] [address] [facility] Department [place] [address] * (ABNORMAL) Comprehensive metabolic panel (03/10/2025 12:02 PM CDT) Sodium 140 135 - 145 mmol/L Comment:Testing performed by : [address] [address] Potassium, pl 4.8 3.3 - 4.9 mmol/L LYN Comment:Testing performed by : [address] [address] Chloride 105 97 - 110 mmol/L LYN Comment:Testing performed by : [address] [address] CO2 25 22 - 32 mmol/L LYN Comment:Testing performed by : [address] [address] Anion gap 10 2 - 15 mmol/L LYN Comment:Testing performed by : [address] [address] BUN 18 6 - 25 mg/dL LYN Comment:Testing performed by : [address] [address] Creatinine 1.04 0.60 - 1.10 mg/dL LYN Comment:Testing performed by : [address] [address] Glucose 93 70 - 199 mg/dL LYN Comment: Interpretive Data Fasting glucose >/= 126 mg/dl is diagnostic for diabetes. Fasting is defined as no caloric intake for at least 8 hours. Fasting glucose between 100 mg/dl to 125 mg/dl is diagnostic of prediabetes. In a patient with classic symptoms of hyperglycemia or hyperglycemic crisis, a random glucose >/= 200 mg/dl is diagnostic for diabetes. In the absence of unequivocal hyperglycemia, results should be confirmed by repeat testing. The classification and Diagnosis of Diabetes Diabetes Care 202; 46: S19-S40. Current interpretive data was last revised 2022. Testing performed by: [address] [place] [address] Calcium 10.4(H) 8.5 - 10.3 mg/dL LYN Comment:Testing performed by : [facility], [address] [place] [address]., [address] Bilirubin, total 0.7 0.1 - 1.2 mg/dL LYN Comment:Testing performed by : [address] [address] Protein, pl 7.8 6.5 - 8.5 g/dL LYN Comment:Testing performed by : [address] [address] Albumin 4.7 3.5 - 5.0 g/dL LYN Comment:Testing performed by : [address] [address] Alk phos 163(H) 40 - 130 Units/L LYN Comment:Testing performed by : [address] [address] ALT 43 7 - 45 Units/L LYN Comment:Testing performed by : [address] [address] AST 32 10 - 45 Units/L LYN Comment:Testing performed by : [address] [address] Blood 03/10/2025 12:0 2 PM CDT 03/10/2025 12:08 PM CDT Sadia Michaud MD LAB BLOOD ORDERABLES Deysi l Result LYN [address] [facility] Department of Laboratories [place], [place] [id number] * Dexa Axial Skeleton Bone Density 1 or 2 Site (07/21/2023 10:11 AM CDT) Anatomical Region Laterality Modality Body N/A Mammography 07/22/2023 2:41 PM CDT Narrative 07/22/2023 2:42 PM CDT EXAM DESCRIPTION: DEXA AXIAL SKELETON BONE DENSITY 1 OR MORE SITES REASON FOR STUDY: 68 y/o year old F with given history of: Postmenopausal status. History of prior left hip replacement in May 2023. Patient takes vitamin-D. Blueprint Reproducer/Model: Hologic Horizon A ([id number]/N [id number]) CLINICAL INFORMATION: Current height: 65 inches Maximum [...] mass (T-score between -1.0 and -2.5) replaces the previously used term osteopenia Osteoporosis (T-score = or below -2.5) Medical evaluation for secondary causes of low bone mineral density may be appropriate. FRAX is a World Health Organization validated fracture risk assessment tool that calculates a person's 10 year probability of a major osteoporosis related fracture and hip fracture. According to the National Osteoporosis Foundation guidelines, postmenopausal [...] Crystal Raymond M.D. TW: TW Report ID: [id number] Reading Location: [id number] Procedure Note RaymondCrystal MD - 07/22/2023 EXAM DESCRIPTION: DEXA AXIAL SKELETON BONE DENSITY 1 OR MORE SITES REASON FOR STUDY: 68 y/o year old F with given history of:Postmenopausal status. History of prior left hip replacement in May 2023. Patienttakes vitamin-D. Blueprint Reproducer/Model: [employer] Horizon A (S/N [id number]) CLINICAL INFORMATION: Current height: 65 inches Maximum [...] Crystal Raymond M.D. TW: TW Report ID: [id number] Reading Location: [id number] us Sonya Elizaldemack BARBACK IMG DXA PROCEDURES F inal Result * Hepatitis panel, acute (07/05/2021 12:34 PM CDT) Hep A IgM NON-REACTI VE NON-REACT EVA [facility] Comment: For additional information, please refer to http://[employer].luma-id/faq/NXX561 (This link is being provided for informational/ [...] a test for HCV RNA (test code 86372) is suggested. 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
--- OUTSIDE RECORDS SUMMARY | 2025-05-23 10:41 | XMS_ITS | Clinical Summary ---
Author Organization [facility] Address [address] [place] [address] Care Team Providers Care Disaster Recovery Coordinator Name Role Phone Sadia Hutchinson MD Primary Care Provider [phone]- [phone] Allergies Active Allergy Reactions Criticality Noted Date [...] Active Problems No known active problems Immunizations Immunization Administration Dates Next Due Influenza (Generic) 07/19/2021,07/15/2021,2019,07/16/2020,07/24/2019 [...] 120 06/20/2022 6:41 PM CDT Temperature 36.8 C (98.2 F) 06/20/2022 6:41 PM CDT Respiratory Rate 18 06/20/2022 6:41 PM CDT Oxygen Saturation 98% 06/20/2022 6:41 PM CDT Inhaled Oxygen Concentration - - Weight 97.1 kg (214 lb) 06/20/2022 6:41 PM CDT Height 165.1 cm (5' 5) 06/20/2022 6:41 PM CDT Body Mass Index 35.61 06/20/2022 6:41 PM CDT Plan of Treatment Health Maintenance Due Date Last Done Comments Colorectal Cancer Screening Colonoscopy (10 Years) 1957 Hepatitis C 1975 DTaP, Tdap and Td Vaccines ( 1 - Tdap) 1976 Mammogram Screening 1997 Pneumococcal Vaccine: 50+ Years (1 of 1 - PCV) 2007 Zoster Vaccines (1 of 2) 2007 Annual Medicare Wellness Visit 2022 COVID-19 Vaccine (4 - 2023-2 5 season) 2024 10/26/2021, 12/24/2020, 11/26/2020 RSV Immunization or 60+ Years (1 - 1-dose 75+ series) 2032 Dexa Scan (General) Completed 08/06/2021 Meningococcal B Vaccine Aged Out No l onger eligible based on patient's age to complete this topic Meningococcal Vaccine Aged Out No jannette jenny eligible based on patient's age to complete this topic RSV Immunizations Under 20 Months Aged Out No longer eligible b ased on patient's age to complete this topic Insurance MEDICARE [facility] Care Teams Disaster Recovery Coordinator Relationship Specialty Start Date End Date Sadia Hutchinson MD PCP - General FAMILY PRACTICE 09/03/19
--- OUTSIDE RECORDS SUMMARY | 2025-05-23 10:41 | XMS_ITS | Patient Health Record ---
Author Organization [facility] OF [facility] Address [address] [place] [address] Care Team Providers Care Photovoltaic Power Systems Engineer Name Role Phone Earlene Washington Primary Care Provider Sridhar RosalesaStepanie Unavailable [phone] Allergies Allergen (clinical drug ingredient) Drug/Non Drug [...] affected area of foot Q6-8 hours PRN Pain; Duration: 30 days 11/19/2018 Not-Taking Vitamin D Active Lisinopril Active Rosuvastatin Calcium [...] Insured Coverage Start Date Coverage End Date [facility] [id number] [place] [address] [id number] Luciana Anderson Self - patient is the insured Medical (General) History Medical History History ICD Code gerd/reflux, high cholesterol, high bloo d pressure Surgical History Surgery Date(Month/Year)
--- OUTSIDE RECORDS SUMMARY | 2025-05-23 10:41 | XMS_ITS | Clinical Summary ---
Author Organization [facility] Address [address] [place] [address] Care Team Providers Care Floorhand Name Role Phone aSdia Michaud MD Primary Care Provider +1 -[phone] Allergies Active Allergy Reactions Criticality Noted Date [...] Date Primary osteoarthritis of left hip 02/27/2023 Social History Tobacco Use Types Packs/Day Years Used Date Smoking Tobacco: Never Tobacco Cessation:Counseling Given: Not Answered Alcohol Use Standard Drinks/Week Comments Never 0 (1 standard drink = 0.6 oz pur e alcohol) Comments No Sex and Gender Information Value Date Recorded Sex Assigned at Not on file 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 Gender Identity Not on file Sexual Orientation Not on file Last Filed Vital Signs Vital Sign Reading Time Taken Comments Blood Pressure 183/103 06/06/2023 10:14 AM CDT Pulse 86 06/06/2023 10:14 AM CDT Temperature 36.6 C (97.9 F) 05/13/2023 4:26 PM CDT Respiratory Rate 22 05/13/2023 4:26 PM CDT Oxygen Saturation 100% 05/13/2023 4:26 PM CDT Inhaled Oxygen Concentration - - Weight 97.1 kg (214 lb) 05/12/2023 7:50 AM CDT Height 165.1 cm (5' 5) 05/12/2023 7:50 AM CDT Body Mass Index 35.61 05/12/2023 7:50 AM CDT Plan of Treatment Health Maintenance Due Date Last Done Comments DTAP/TDAP/TD VACCINES (1 - Tdap) 1976 COLORECTAL SCREENING 2002 Colorectal Cancer Screening 2002 FIT-DNA Q 3 years 2002 FIT/FOBT Q 1 year 2002 Flex Sig/CT Colonography Q 5 years 2002 PNEUMOCOCCAL VACCINE 50+ YEA RS (1 of 1 - PCV) 2007 ZOSTER VACCINE (1 of 2) 2007 BREAST CANCER SCREENING 04/04/2024 04/04/20 23, 03/21/2022, 04/09/2021, Additional history exists COVID-19 Vaccine (2023-2 5 season) 2024 10/26/2021, 12/24/2020, 11/26/2020 INFLUENZA VACCINE (#1) 2025 , 07/15/2021, 07/16/2020, Additional history exists OSTEOPOROSIS SCREENING 08/06/2026 08/06/2021, 2012 RSV VACCINE (60+ or ) (1 - 1-dose 75+ series) 2032 Medical Devices Implanted Type Area Reed Cleaner Device Identifier Shelf Expiration Date Model / Serial / Lot Shell G7 Pps Lmtd Hl 50mm [id number] - [id number] Implanted:Qty: 1 on 05/12/2023 by Jaime Mobley MD at [facility] Hip Left: Hip [employer] [id number] 11/02/2032 [id number] / / [id number] Stem Fem Taperloc R/D [id number] - [id number] Implanted:Qty: 1 on 05/12/2023 by Jaime Mobley MD at [facility] Hip Left: Hip [employer] [id number] 12/26/2032 [id number] / / [id number] Acetabular System Vivacit-E Vitamin Highly Crosslinked Polyethylene Liner Implanted:Qty: 1 on 05/12/2023 by Jaime Mobley MD at [facility] Left: Hip [employer] [id number] 10/31/2027 [id number] / / [id number] [employer]ox Delta Modular Ceramic Head Implanted:Qty: 1 on 05/12/2023 by Jaime Mobley MD at [facility] Left: Hip [employer]ET [id number] 09/21/2032 [id number] / / [id number] Insurance MEDICARE PART A AND B [facility] [employer] Medicare Part D RX [employer] Commercial Advance Directives For more information, please contact: [phone] * Full Code (Latest Code Status on File) Date Activated Date Inactivated Comments 05/12/2023 1:17 PM 05/13/2023 7:07 PM * Default Full Code - Needs Discussion Date Activated Date Inactivated Comments 05/12/2023 7:54 AM 05/12/2023 1:17 PM Care Teams Floorhand Relationship Specialty Start Date End Date Sadia Michaud MD PCP - General Family Practice 12/13/22
== END 2025-05-23 10:36 | disposition home or self-care (01) ==
PROVIDERS: PCP Family Medicine; Visit Provider Urology
DX: N20.1 Calculus of ureter (principal); N20.0 Calculus of kidney
CPT/HCPCS: 74018